=== PATIENT | male | born 1940 | race Caucasian/White ===

== ENCOUNTER 2016-08-07 13:57 | Inpatient (IN) | payer MEDICARE ==
[2016-08-07] VITALS (24 sets, daily range): BP systolic 132–224; BP diastolic 65–95; PULSE 34–80; RESP 16–21; TEMP 97.8; O2SAT 94–100
[~2016-08-07] VITALS: Ht 177.8 cm; Wt 96.5 kg
[~2016-08-07 13:57] MED LIST: AMLO5TAB22 PO; ASPI81TA11 PO; LISI-360 PO; NEBI5 PO; OMEP20TA39 PO; ROPI.5 PO; SYNT137T PO; ZOCO40TA PO
[2016-08-07 14:15] LABS: BASOPHIL # 0.1 TH/MM3 (0-0.2); BASOPHIL % 0.7 % (0.0-2.0); EOSINOPHIL # 0.2 TH/MM3 (0-0.4); EOSINOPHIL % 3.2 % (0.0-4.0); HEMATOCRIT 45.5 % (39.0-51.0); HEMO FLAGS DIFF FINAL; LYMPH % 21.3 % (9.0-44.0); LYMPHOCYTE # 1.6 TH/MM3 (1.0-4.8); MEAN CELL VOLUME 96.2 FL (80.0-100.0); MEAN CORPUSCULAR HEMOGLOBIN 32.2 PG (27.0-34.0); MEAN CORPUSCULAR HGB CONC 33.4 % (32.0-36.0); MONO % 7.6 % (0.0-8.0); NEUT % 67.2 % (16.0-70.0); PLATELET COUNT 214 TH/MM3 (150-450); RED BLOOD COUNT 4.73 MIL/MM3 (4.50-5.90); RED CELL DISTRIBUTION WIDTH 12.8 % (11.6-17.2); WHITE BLOOD COUNT 7.5 TH/MM3 (4.0-11.0)
[2016-08-07] MEDS ORDERED: NITROGLYCERIN-DEXTROSE INJ 250 ML IV ONE (14:15)
[2016-08-07] MEDS ORDERED: SODIUM CHLORIDE 0.9% FLUSH 10 ML FLUSH IV FLUSH PRN ×2 (14:15→16:00)
--- NOTE | 2016-08-07 14:18 | PD ---
HPI Chief Complaint: Chest Pain Time Seen by Provider: 14:02 Travel History International Travel<30 days: No Contact w/Intl Traveler<30days: No Traveled to known affect area: No History of Present Illness HPI This is a 75-year-old male who presents to the emergency department with onset of epigastric discomfort that started this morning, gradual in onset. Currently he reports severity is never had pain like this before. It radiates to the back between his shoulder blades. He denies any vomiting, fevers or chills. He denies any shortness of breath. He went to an urgent care prior to arrival here who recommended he come to an emergency department. He says he has stomach problems and he sees a financial planning consultant and takes Zantac. He also has a stent but says he's never had a heart attack. PFSH Past Medical History Hx Anticoagulant Therapy: Yes (BABY ASA DAILY) Cardiac Catheterization: Yes Cardiovascular Problems: Yes (STENT, HTN, CHOL, BRADYCARDIA) Coronary Artery Disease: Yes GERD: Yes Hiatal Hernia: Yes Hypertension: Yes Neurologic: Yes (RESTLESS LEG SYNDROME) Thyroid Disease: Yes Past Surgical History Coronary Stent: Yes Social History Alcohol Use: Yes (DAILY) Tobacco Use: Yes (CIGAR DAILY) Substance Use: No Allergies-Medications (Allergen,Severity, Reaction): Coded Allergies: No Known Allergies (Unverified , 08/07/16) Reported Meds & Prescriptions Reported Meds & Active Scripts Active Reported Aspir-81 (Aspirin) 81 Mg Tabdr Melatonin 5 Mg Tab 5 Mg PO HS Lisinopril 10 Mg Tab 10 Mg PO DAILY Lisinopril 5 Mg Tab 5 Mg PO DAILY Simvastatin 10 Mg Tab 10 Mg PO DAILY Ropinirole 1 Mg Tab 1 Mg PO HS Carvedilol 3.125 Mg Tab 3.125 Mg PO BID Magox 400 (Magnesium Oxide) 400 Mg Tablet Amlodipine (Amlodipine Besylate) 5 Mg Tab 5 Mg PO DAILY Synthroid (Levothyroxine Sodium) 150 Mcg Tab 150 Mcg PO DAILY Review of Systems Except as stated in HPI: all other systems reviewed are Neg Physical Exam Narrative GENERAL: Uncomfortable appearing, pale SKIN: Focused skin assessment warm and dry. HEAD: Atraumatic. Normocephalic. EYES: Pupils equal and round. No injection or drainage. ENT: Moist mucous membranes NECK: Trachea midline. CARDIOVASCULAR: Bradycardic. No murmur appreciated. RESPIRATORY: Clear to auscultation. Breath sounds equal bilaterally. GASTROINTESTINAL: Abdomen soft, non-tender, nondistended. No pulsatile mass. MUSCULOSKELETAL: No obvious deformities. NEUROLOGICAL: Awake and alert. No obvious cranial nerve deficits. Moving all extremities. PSYCHIATRIC: Appropriate mood and affect; insight and judgment normal. Data Data Last Documented VS Vital Signs Date Time Temp Pulse Resp B/P Pulse Ox O2 Delivery O2 Flow Rate FiO2 08/07/16 15:48 44 16 144/71 98 Nasal Cannula 2 08/07/16 14:14 97.8 Orders Complete Blood Count With Diff (08/07/16 14:02) Comprehensive Metabolic Panel (08/07/16 14:02) Lipase (08/07/16 14:02) Lactic Acid (08/07/16 14:02) Prothrombin Time / Inr (Pt) (08/07/16 14:02) Act Partial Throm Time (Ptt) (08/07/16 14:02) Iv Access Insert/Monitor (08/07/16 14:02) Ecg Monitoring (08/07/16 14:02) Oximetry (08/07/16 14:02) Sodium Chloride 0.9% Flush (Ns Flush) (08/07/16 14:15) Electrocardiogram (08/07/16 14:02) Ed Poc Ultrasound (08/07/16 ) Troponin I (08/07/16 14:02) Cta Thor Abd Aorta W Iv C W3d (08/07/16 ) Nitroglycerin-Dextrose Inj (Nitroglyceri (08/07/16 14:15) Morphine Inj (Morphine Inj) (08/07/16 14:30) Morphine Inj (Morphine Inj) (08/07/16 14:30) Iohexol 350 Inj (Omnipaque 350 Inj) (08/07/16 14:44) Morphine Inj (Morphine Inj) (08/07/16 15:15) Aspirin Chew (Aspirin Chew) (08/07/16 15:45) Admit Order (Ed Use Only) (08/07/16 15:52) Enoxaparin Inj (Lovenox Inj) (08/07/16 16:00) Labs Laboratory Tests Test 08/07/16 14:07 White Blood Count 7.5 TH/MM3 Red Blood Count 4.73 MIL/MM3 Hemoglobin 15.2 GM/DL Hematocrit 45.5 % Mean Corpuscular Volume 96.2 FL Mean Corpuscular Hemoglobin 32.2 PG Mean Corpuscular Hemoglobin 33.4 % Concent Red Cell Distribution Width 12.8 % Platelet Count 214 TH/MM3 Mean Platelet Volume 7.1 FL Neutrophils (%) (Auto) 67.2 % Lymphocytes (%) (Auto) 21.3 % Monocytes (%) (Auto) 7.6 % Eosinophils (%) (Auto) 3.2 % Basophils (%) (Auto) 0.7 % Neutrophils # (Auto) 5.0 TH/MM3 Lymphocytes # (Auto) 1.6 TH/MM3 Monocytes # (Auto) 0.6 TH/MM3 Eosinophils # (Auto) 0.2 TH/MM3 Basophils # (Auto) 0.1 TH/MM3 CBC Comment DIFF FINAL Differential Comment Prothrombin Time 10.7 SEC Prothromb Time International 1.0 RATIO Ratio Activated Partial 28.5 SEC Thromboplast Time Sodium Level 142 MEQ/L Potassium Level 3.6 MEQ/L Chloride Level 106 MEQ/L Carbon Dioxide Level 27.2 MEQ/L Anion Gap 9 MEQ/L Blood Urea Nitrogen 15 MG/DL Creatinine 1.00 MG/DL Estimat Glomerular Filtration 72 ML/MIN Rate Random Glucose 152 MG/DL Lactic Acid Level 1.6 mmol/L Calcium Level 9.5 MG/DL Total Bilirubin 0.7 MG/DL Aspartate Amino Transf 26 U/L (AST/SGOT) Alanine Aminotransferase 27 U/L (ALT/SGPT) Alkaline Phosphatase 66 U/L Troponin I LESS THAN 0.02 NG/ML Total Protein 7.0 GM/DL Albumin 3.7 GM/DL Lipase 173 U/L [facility] Medical Decision Making Medical Screen Exam Complete: Yes Emergency Medical Condition: Yes Interpretation(s) ekg: sinus bradycardia, T-wave inversions and 3 and aVF which are deeper and more pronounced than December 2014 No leukocytosis Electrolytes are reassuring Troponin is normal Lactic acid is 1.6 Coags are normal Last 24 hours Impressions Aorta CTA 08/07/16 0000 Signed Impressions: Service Date/Time: Friday, August 07, 2016 14:41 - CONCLUSION: There is no dissection. Marked artery calcifi is noted especially LAD. Mild cardiomegaly. There is no pericardial effusion. Emiliano Arndt MD FACR Differential Diagnosis Acute coronary syndrome, hypertensive urgency, hypertensive emergency, aortic dissection, gastritis, GERD Narrative Course This is a 75-year-old male who presents to the emergency department with substernal chest discomfort that radiates to the back. He was markedly hypertensive and bradycardic when he arrived. He was placed on a nitroglycerin infusion and given morphine. He appeared uncomfortable so a CTA was obtained to rule out aortic dissection which was negative. His EKG demonstrates ischemic -appearing T-wave inversions in 3 and aVF which are more pronounced than his prior EKG. Labs were obtained which were all reassuring. His CTA did demonstrate coronary artery calcification particularly in the LAD. I discussed the patient with Dr. Taveras who is on-call for Dr. Eli. He agreed the patient should be admitted and transferred to the main hospital as he will likely require cardiac catheterization. Patient was started on Lovenox and he received heparin in the emergency room. Critical Care Narrative Aggregate critical care time was 40 minutes. Time to perform other separately billable procedures was not included in the critical care time. My time did not include minutes spent treating any other patients simultaneously or on activities that did not directly contribute to the patient's treatment. The services I provided to this patient were to treat and/or prevent clinically significant deterioration that could result in: disability, I provided critical care services requiring my management, as noted below: Chart data review, documentation time, medication orders and management, vital sign assessments/reviewing monitor data, ordering and reviewing lab tests, ordering and interpreting/reviewing x-rays and diagnostic studies, care of the patient and discussion of the patient with the admitting physicians. Physician Communication Physician Communication Discussed with Dr. Taveras and Dr. Harper Diagnosis Primary Impression: Hypertensive urgency Admitting Information Admitting Physician Requests: Admit Catrachita Spangler MD Aug 07, 2016 14:18
[2016-08-07 14:22] LABS: CHLORIDE 106 MEQ/L (98-107); POTASSIUM 3.6 MEQ/L (3.5-5.1); SODIUM (NA) 142 MEQ/L (136-145)
[2016-08-07 14:26] LABS: ANION GAP 9 MEQ/L (5-15); BICARBONATE 27.2 MEQ/L (21.0-32.0); BLOOD UREA NITROGEN 15 MG/DL (7-18)
[2016-08-07] MEDS ORDERED: AMLO5TAB2 PO (14:26)
[2016-08-07] MEDS ORDERED: MELA5TAB15 PO (14:26)
[2016-08-07] MEDS ORDERED: ASPI81TA81 (14:26)
[2016-08-07] MEDS ORDERED: LEVO.15 PO (14:26)
[2016-08-07] MEDS ORDERED: MAGO400T2 (14:26)
[2016-08-07] MEDS ORDERED: ROPI1TAB PO (14:26)
[2016-08-07] MEDS ORDERED: LISI10TA3 PO (14:26)
[2016-08-07] MEDS ORDERED: CARV3.12 PO (14:26)
[2016-08-07] MEDS ORDERED: LISI-519 PO (14:26)
[2016-08-07] MEDS ORDERED: SIMV10TA PO (14:26)
[2016-08-07 14:27] LABS: APTT (PATIENT) 28.5 SEC (24.3-30.1); PROTHROMBIN TIME - PATIENT 10.7 SEC (9.8-11.6)
[2016-08-07 14:29] LABS: ALT (GPT) 27 U/L (12-78); AST (GOT) 26 U/L (15-37); GLOMERULAR FILTRATION RATE 72 ML/MIN (>89)
[2016-08-07 14:30] LABS: TOTAL BILIRUBIN ADULT 0.7 MG/DL (0.2-1.0)
[2016-08-07] MEDS ORDERED: MORPHINE SULFATE 8 MG/ML INJ IV PUSH ONE ×3 (14:30→19:45)
[2016-08-07] MEDS ORDERED: MORPHINE SULFATE 4 MG/ML INJ IV PUSH ONE (14:30)
[2016-08-07 14:32] LABS: ALKALINE PHOSPHATASE 66 U/L (45-117)
[2016-08-07] MEDS ORDERED: IOHEXOL 350 MG/ML 10 ML VIAL (for RAD DIAG) IV ONE (14:44)
--- NOTE | 2016-08-07 15:37 | RADRPT ---
EXAM DATE/TIME: 08/07/2016 14:41 [facility] COMPARISON: No previous studies available for comparison. INDICATIONS : Chest pain . Rule out aortic disection. IV CONTRAST: 98 cc Omnipaque 350 (iohexol) IV RADIATION DOSE: 21.60 CTDIvol (mGy) MEDICAL HISTORY : Hernia, hiatal. Gastroesophageal reflux disease. Cardiovascular disease SURGICAL HISTORY : Coronary artery stent. ENCOUNTER: Initial ACUITY: 1 day PAIN SCALE: 10/10 LOCATION: Bilateral middle chest TECHNIQUE: Volumetric scanning was performed using a multi-row detector CT scanner. The data was post processed with a variety of visualization algorithms including full volume maximum intensity pr ojection, multi-planar sliding thin slab reformation, curved planar reformation, and surface renderin g techniques. Using automated exposure control and adjustment of the mA and/or kV according to patie nt size, radiation dose was kept as low as reasonably achievable to obtain optimal diagnostic quality images. DICOM format image data is available electronically for review and comparison. FINDINGS: There is mild dilatation of the ascending aorta without evidence for aortic dissection. Minimal hard and soft plaque is seen in the descending aorta without aneurysmal dilatation. The celiac, superior mesenteric artery, renal area and iliac arteries are patent. There is no pericardial effusion. There is marked LAD calcification. The right coronary contains scattered calcifications as well. The lungs show mild interstitial changes with minimal cardiomegaly. There is scattered low-density l esions in the liver probably cysts. Spleen pancreas, adrenals and kidneys are unremarkable. Pelvic contents show scattered diverticuli. CONCLUSION: There is no dissection. Marked artery calcifi is noted especially LAD. Mild cardiom egaly. There is no pericardial effusion. Emiliano Arndt MD FACR on August 07, 2016 at 15:30 Board Certified Radiologist. This report was verified electronically.
[2016-08-07] MEDS ORDERED: ASPIRIN 81 MG CHEW TAB CHEW ONE (15:45)
[2016-08-07] MEDS ORDERED: BISACODYL 10 MG SUPP RECTAL PRN (16:00)
[2016-08-07] MEDS ORDERED: ONDANSETRON HCL 4 MG/2 ML VIAL IVP PRN (16:00)
[2016-08-07] MEDS ORDERED: LACTULOSE SYRUP 20 GM/30 ML CUP PO PRN (16:00)
[2016-08-07] MEDS ORDERED: ACETAMINOPHEN 325 MG TAB PO PRN (16:00)
[2016-08-07] MEDS ORDERED: ENOXAPARIN SODIUM 100 MG/ML SYRINGE SQ ONE (16:00)
[2016-08-07] MEDS ORDERED: NALOXONE HCL 0.4 MG/ML AMP IV PRN (16:00)
--- NOTE | 2016-08-07 18:08 | HHI.HP ---
HPI Service [facility] Primary Care Physician Mitchel Osborne MD Admission Diagnosis hypertensive urgency Diagnoses: Chief Complaint: Chest pain, dizziness. Travel History International Travel<30 Days: No Contact w/Intl Traveler <30 Da: No Traveled to Known Affected Are: No History of Present Illness Mr. San is a pleasant 75-year-old male with a history of hypertension, CAD status post stent placement in 2003 who presents to the emergency department with epigastric discomfort that started this morning after he walked 1 and half mile. For the last 2-3 days, patient has been experiencing some epigastric discomfort. However this morning around 6 AM after he walked his usual 1.5 miles, he started having constant epigastric chest discomfort radiating to the back between the shoulder blades. He reports more than usual sweating with this episode as well. He also reports some dizziness during exertion. He denies any radiation of this chest discomfort to neck, jaw, shoulder or arms. No nausea vomiting. No shortness of breath, cough or fever or chills. Patient denies any changes in bowel or bladder habits. On arrival blood pressure 224/95, heart rate 37, respirations 16, temperature 97.8, pulse ox 100% on 2 L. No leukocytosis. Troponin 0.02. Lipase 173. EKG showed bradycardia (HR 35) and T wave inversions in Lead II, V3. Aorta CTA was performed due to suspicion over aortic dissection. Aorta CTA shows no dissection but shows markedly artery calcifi noted especially LAD. Patient's foreign broadcast specialist is Dr. Eli whose partner Dr. Taveras was contacted by ED provider. Dr. Taveras recommended anticoagulation and transferring patient to the main hospital for possible cardiac catheterization. Review of Systems Except as stated in HPI: all other systems reviewed are Neg Past Family Social History Past Medical History Hypertension, CAD, hyperlipidemia, hypothyroidism, GERD. Past Surgical History Cardiac stent placement in 2003 Reported Medications Aspir-81 (Aspirin) 81 Mg Tabdr Melatonin 5 Mg Tab 5 Mg PO HS Lisinopril 10 Mg Tab 10 Mg PO DAILY Lisinopril 5 Mg Tab 5 Mg PO DAILY Simvastatin 10 Mg Tab 10 Mg PO DAILY Ropinirole 1 Mg Tab 1 Mg PO HS Carvedilol 3.125 Mg Tab 3.125 Mg PO BID Magox 400 (Magnesium Oxide) 400 Mg Tablet Amlodipine (Amlodipine Besylate) 5 Mg Tab 5 Mg PO DAILY Synthroid (Levothyroxine Sodium) 150 Mcg Tab 150 Mcg PO DAILY Allergies: Coded Allergies: No Known Allergies (Unverified , 08/07/16) Family History Father from heart attack at age 58. Mother from liver cancer at age 78. Social History Patient smokes cigar once in a while. Drinks 2-3 alcoholic drinks per day. Physical Exam Vital Signs Vital Signs Date Time Temp Pulse Resp B/P Pulse Ox O2 Delivery O2 Flow Rate FiO2 08/07/16 17:17 44 16 144/70 97 Nasal Cannula 2 08/07/16 17:07 38 16 149/65 98 Nasal Cannula 2 08/07/16 16:39 38 16 163/70 98 Nasal Cannula 2 08/07/16 16:21 37 16 175/76 98 Nasal Cannula 2 08/07/16 16:08 37 16 166/66 99 Nasal Cannula 2 08/07/16 15:48 44 16 144/71 98 Nasal Cannula 2 08/07/16 15:32 39 16 160/70 97 Nasal Cannula 2 08/07/16 15:18 43 16 154/66 97 Nasal Cannula 2 08/07/16 15:00 36 16 187/81 99 Nasal Cannula 2 08/07/16 14:38 36 16 157/66 97 Nasal Cannula 2 08/07/16 14:36 34 16 140/69 97 Nasal Cannula 2 08/07/16 14:31 37 16 151/70 99 Nasal Cannula 2 08/07/16 14:25 37 16 154/76 97 Nasal Cannula 2 08/07/16 14:24 35 16 208/86 97 Nasal Cannula 2 08/07/16 14:21 16 98 Nasal Cannula 2 08/07/16 14:18 16 100 2 08/07/16 14:14 97.8 37 16 224/95 100 Physical Exam GENERAL: This is a well-nourished, well-developed patient, in no apparent distress. SKIN: No rashes, ecchymoses or lesions. Warm and dry. HEAD: Atraumatic. Normocephalic. No temporal or scalp tenderness. EYES: Pupils equal round and reactive. No injection or drainage. ENT: Nose without bleeding, purulent drainage or septal hematoma. Airway patent. NECK: Trachea midline. No lymphadenopathy. Supple, nontender, no meningeal signs. CARDIOVASCULAR: Regular rhythm, bradycardic without murmurs, gallops, or rubs. No JVD. RESPIRATORY: Clear to auscultation. Breath sounds equal bilaterally. No wheezes , rales, or rhonchi. GASTROINTESTINAL: Abdomen soft, non-tender, nondistended. No guarding. MUSCULOSKELETAL: Extremities without clubbing, cyanosis, or edema. NEUROLOGICAL: Awake and alert. Cranial nerves II through XII intact. No focal neurological deficits. Normal speech. Laboratory Laboratory Tests Test 08/07/16 14:07 White Blood Count 7.5 Red Blood Count 4.73 Hemoglobin 15.2 Hematocrit 45.5 Mean Corpuscular Volume 96.2 Mean Corpuscular Hemoglobin 32.2 Mean Corpuscular Hemoglobin 33.4 Concent Red Cell Distribution Width 12.8 Platelet Count 214 Mean Platelet Volume 7.1 Neutrophils (%) (Auto) 67.2 Lymphocytes (%) (Auto) 21.3 Monocytes (%) (Auto) 7.6 Eosinophils (%) (Auto) 3.2 Basophils (%) (Auto) 0.7 Neutrophils # (Auto) 5.0 Lymphocytes # (Auto) 1.6 Monocytes # (Auto) 0.6 Eosinophils # (Auto) 0.2 Basophils # (Auto) 0.1 CBC Comment DIFF FINAL Differential Comment Prothrombin Time 10.7 Prothromb Time International 1.0 Ratio Activated Partial 28.5 Thromboplast Time Sodium Level 142 Potassium Level 3.6 Chloride Level 106 Carbon Dioxide Level 27.2 Anion Gap 9 Blood Urea Nitrogen 15 Creatinine 1.00 Estimat Glomerular Filtration 72 Rate Random Glucose 152 Lactic Acid Level 1.6 Calcium Level 9.5 Total Bilirubin 0.7 Aspartate Amino Transf 26 (AST/SGOT) Alanine Aminotransferase 27 (ALT/SGPT) Alkaline Phosphatase 66 Troponin I LESS THAN 0.02 Total Protein 7.0 Albumin 3.7 Lipase 173 Result Diagram: 08/07/16 1407 08/07/16 1407 Imaging Last Impressions Aorta CTA 08/07/16 0000 Signed Impressions: Service Date/Time: Sunday, August 07, 2016 14:41 - CONCLUSION: There is no dissection. Marked artery calcifi is noted especially LAD. Mild cardiomegaly. There is no pericardial effusion. Emiliano Arndt MD FACR Assessment and Plan Problem List: (1) Hypertensive urgency ICD Code: I16.0 Status: Acute (2) Chest pain ICD Code: R07.9 Status: Acute (3) Symptomatic bradycardia ICD Code: R00.1 Status: Acute (4) GERD (gastroesophageal reflux disease) ICD Code: K21.9 Status: Acute (5) Hypertension ICD Code: I10 Status: Acute (6) Hypothyroidism ICD Code: E03.9 Status: Acute (7) CAD (coronary artery disease) ICD Code: I25.10 Status: Acute Assessment and Plan Mr. San is a pleasant 75-year-old male with a history of hypertension, CAD, GERD who presents to the emergency department due to severe epigastric pain radiating to his back that started after he walked 1.5 miles in the morning around 6 AM. His pain subsided after he came to the emergency department where he was found to have blood pressure 224/95. - Hypertensive urgency - Patient was started on nitroglycerine drip in the ED. Currently, BP is in the 140s range systolic. - Wean off nitro drip. - Continue Amlodipine 5mg Qday and Lisinopril 10mg Qday. - Continue Carvedilol with holding parameters. - Coronary artery disease - Acute chest pain - Patient has a cardiac stent [place] [address] Eli. - Received Aspirin 162mg. - Received Morphine which improved his epigastric chest discomfort. - EKG, CXR reviewed by me. EKG shows bradycardia with T wave inversions in lead 3 and V3. - Continue Lovenox 90mg BID. - Cardiology consulted. - Symptomatic bradycardia - Possibly due to beta windy. - Patient gets dizzy occasionally. His heart rate was found to be in the 30s. - Hyperlipidemia - D/C Pravastatin and start Lipitor 40mg QHS. - GERD - Patient's epigastric chest discomfort could be due to GERD. - We will start him on Protonix 40mg BID - If Cardiac cath is negative for any acute findings, consider outpatient EGD. - Hypothyroidism - Continue Levothyroxine 150 mcg Qday. Full code. Lovenox. Physician Certification 2 Midnight Certification Type: Admission for Inpatient Services Order for Inpatient Services The services are ordered in accordance with Medicare regulations or non- Medicare payer requirements, as applicable. In the case of services not specified as inpatient-only, they are appropriately provided as inpatient services in accordance with the 2-midnight benchmark. Estimated LOS (days): 2 days is the estimated time the patient will need to remain in the hospital, assuming treatment plan goals are met and no additional complications. Post-Hospital Plan: Home Carlos Harper DO Aug 07, 2016 18:08
[2016-08-07] MEDS: CARVEDILOL 3.125 MG TAB PO SCH (21:25)
[2016-08-07] MEDS: PANTOPRAZOLE SOD 40 MG DELAYED RELEASE TAB PO SCH (21:25)
[2016-08-07] MEDS: MELATONIN 5 MG TAB PO SCH (21:25)
[2016-08-07] MEDS: DOCUSATE SODIUM 50 MG/SENNA 8.6 MG TAB PO SCH (21:26)
[2016-08-07] MEDS: ATORVASTATIN 40 MG TAB PO SCH (21:26)
[2016-08-07] MEDS: SODIUM CHLORIDE 0.9% FLUSH 10 ML FLUSH IV FLUSH SCH (21:27)
[2016-08-08] VITALS (10 sets, daily range): BP systolic 140–179; BP diastolic 77–97; PULSE 60–81; RESP 8–34; TEMP 97.9–98.8; O2SAT 94–96
[2016-08-08 05:03] LABS: AUTOMATED NEUTROPHIL # 11.6 TH/MM3 (1.8-7.7); BASOPHIL % 0.2 % (0.0-2.0); EOSINOPHIL # 0.1 TH/MM3 (0-0.4); EOSINOPHIL % 0.7 % (0.0-4.0); HEMATOCRIT 41.9 % (39.0-51.0); HEMO FLAGS DIFF FINAL; LYMPHOCYTE # 1.3 TH/MM3 (1.0-4.8); MEAN CELL VOLUME 93.5 FL (80.0-100.0); MEAN CORPUSCULAR HEMOGLOBIN 32.1 PG (27.0-34.0); MEAN CORPUSCULAR HGB CONC 34.4 % (32.0-36.0); MONO % 8.9 % (0.0-8.0); NEUT % 81.2 % (16.0-70.0); PLATELET COUNT 159 TH/MM3 (150-450); RED BLOOD COUNT 4.48 MIL/MM3 (4.50-5.90); WHITE BLOOD COUNT 14.3 TH/MM3 (4.0-11.0)
[2016-08-08 05:30] LABS: BICARBONATE 27.1 MEQ/L (21.0-32.0); POTASSIUM 3.2 MEQ/L (3.5-5.1)
[2016-08-08] MEDS ORDERED: ENOXAPARIN SODIUM 100 MG/ML SYRINGE SQ SCH (07:00)
[2016-08-08] MEDS: LEVOTHYROXINE SODIUM 150 MCG TAB PO SCH (07:28)
--- NOTE | 2016-08-08 08:07 | EKG ---
Date Performed: 08/07/2016 Time Performed: 14:03:06 PTAGE: 75 years EKG: SINUS BRADYCARDIA POSSIBLE LEFT VENTRICULAR HYPERTROPHY POSSIBLE ANTERIOR MYOCARDIAL INFARC TION ABNORMAL ECG NO PREVIOUS TRACING DOCTOR: Bradley Pedersen Interpretating Date/Time 08/08/2016 08:00:37
[2016-08-08] MEDS: ASPIRIN EC 81 MG TABEC PO SCH (08:58)
[2016-08-08] MEDS: amLODIPine BESYLATE 5 MG TAB PO SCH (08:58)
[2016-08-08] MEDS: SODIUM CHLORIDE 0.9% FLUSH 10 ML FLUSH IV FLUSH SCH ×2 (08:58→21:37)
[2016-08-08] MEDS: DOCUSATE SODIUM 50 MG/SENNA 8.6 MG TAB PO SCH ×2 (08:59→21:37)
[2016-08-08] MEDS: PANTOPRAZOLE SOD 40 MG DELAYED RELEASE TAB PO SCH ×2 (08:59→21:37)
[2016-08-08] MEDS: LISINOPRIL 10 MG TAB PO SCH (08:59)
[2016-08-08] MEDS ORDERED: PRAVASTATIN SOD 20 MG TAB PO SCH (09:00)
[2016-08-08] MEDS: CARVEDILOL 3.125 MG TAB PO SCH ×2 (09:02→21:37)
[2016-08-08] MEDS ORDERED: SODIUM PHOSPHATE INJ 30 MMOL in SODIUM CHLOR 0.9% 250 ML INJ 240 ML IV PRN (12:15)
[2016-08-08] MEDS ORDERED: POTASSIUM CHLORIDE 25 MEQ EFFERVESCENT TAB PO PRN (12:15)
[2016-08-08] MEDS ORDERED: POTASSIUM PHOSPHATE MONOBASIC 500 MG TAB PO/TUBE PRN (12:15)
[2016-08-08] MEDS ORDERED: POTASSIUM CHLOR 40 MEQ PREMIX 100 ML IV PRN ×2 (12:15)
[2016-08-08] MEDS ORDERED: POTASSIUM PHOSPHATE INJ 30 MMOL in SODIUM CHLOR 0.9% 250 ML INJ 250 ML IV PRN (12:15)
[2016-08-08] MEDS ORDERED: MAGNESIUM OXIDE 400 MG TAB PO PRN (12:15)
[2016-08-08] MEDS ORDERED: POTASSIUM CHLOR 20 MEQ PREMIX 100 ML IV PRN ×2 (12:15)
[2016-08-08] MEDS ORDERED: MAGNESIUM SULFATE INJ 4 GM in SODIUM CHLORIDE 0.9% INJ 92 ML IV PRN (12:15)
[2016-08-08] MEDS ORDERED: MAGNESIUM SULFATE INJ 2 GM in SODIUM CHLORIDE 0.9% INJ 96 ML IV PRN (12:15)
[2016-08-08] MEDS ORDERED: POTASSIUM CHLORIDE 20 MEQ CONTROLLED RELEASE TAB PO ONE (12:15)
[2016-08-08] MEDS ORDERED: POTASSIUM PHOSPHATE MONOBASIC 500 MG TAB PO PRN (12:15)
--- NOTE | 2016-08-08 12:29 | HHI.PR ---
Subjective Remarks Follow-up coronary artery disease with chest pain and hypertension. States he is feeling better not having the kind of chest pain he had yesterday. Complains of intermittent sharp lower lateral chest wall pains lasting for a few seconds when he moves. Denies shortness of breath, palpitations, nausea, dizziness and diaphoresis. States he had negative stress test 6 months ago. He exercises walks 1.5 miles per day in 22 minutes without symptoms. Discussed with RN to wean and discontinue nitro drip Objective Vitals Vital Signs Date Time Temp Pulse Resp B/P Pulse Ox O2 Delivery O2 Flow Rate FiO2 08/08/16 04:02 97.9 77 8 140/85 95 08/08/16 04:00 97.9 77 8 140/85 95 08/08/16 03:00 97.9 77 8 140/85 95 08/08/16 00:02 98.6 81 22 146/82 96 08/07/16 23:00 97.8 72 21 148/87 94 08/07/16 22:00 97.8 80 21 148/79 94 08/07/16 19:59 69 18 132/87 97 2 08/07/16 19:30 56 20 157/81 97 Nasal Cannula 08/07/16 19:05 Nasal Cannula 2 08/07/16 19:05 55 18 136/73 96 Nasal Cannula 08/07/16 18:51 45 154/72 99 08/07/16 18:13 40 158/75 99 08/07/16 17:37 47 148/73 99 08/07/16 17:17 44 16 144/70 97 Nasal Cannula 2 08/07/16 17:07 38 16 149/65 98 Nasal Cannula 2 08/07/16 16:39 38 16 163/70 98 Nasal Cannula 2 08/07/16 16:21 37 16 175/76 98 Nasal Cannula 2 08/07/16 16:08 37 16 166/66 99 Nasal Cannula 2 08/07/16 15:48 44 16 144/71 98 Nasal Cannula 2 08/07/16 15:32 39 16 160/70 97 Nasal Cannula 2 08/07/16 15:18 43 16 154/66 97 Nasal Cannula 2 08/07/16 15:00 36 16 187/81 99 Nasal Cannula 2 08/07/16 14:38 36 16 157/66 97 Nasal Cannula 2 08/07/16 14:36 34 16 140/69 97 Nasal Cannula 2 08/07/16 14:31 37 16 151/70 99 Nasal Cannula 2 08/07/16 14:25 37 16 154/76 97 Nasal Cannula 2 08/07/16 14:24 35 16 208/86 97 Nasal Cannula 2 08/07/16 14:21 16 98 Nasal Cannula 2 08/07/16 14:18 16 100 2 08/07/16 14:14 97.8 37 16 224/95 100 I/O 08/07/16 08/07/16 08/07/16 08/08/16 08/08/16 08/08/16 07:00 15:00 23:00 07:00 15:00 23:00 Intake Total 317 ml Output Total 900 ml 350 ml Balance -900 ml -33 ml Intake Oral 240 ml IV Total 77 ml Output Urine Total 900 ml 350 ml Result Diagram: 08/08/16 0357 08/08/16 0357 Imaging Last Impressions Aorta CTA 08/07/16 0000 Signed Impressions: Service Date/Time: Sunday, August 07, 2016 14:41 - CONCLUSION: There is no dissection. Marked artery calcifi is noted especially LAD. Mild cardiomegaly. There is no pericardial effusion. Emiliano Arndt MD FACR Objective Remarks GENERAL: This is a well-nourished, well-developed patient, in no apparent distress. SKIN: No rashes, ecchymoses or lesions. Warm and dry. HEAD: Atraumatic. Normocephalic. No temporal or scalp tenderness. EYES: Pupils equal round and reactive. No injection or drainage. ENT: Nose without bleeding, purulent drainage or septal hematoma. Airway patent. NECK: Trachea midline. No lymphadenopathy. Supple, nontender, no meningeal signs. CARDIOVASCULAR: Regular rhythm, bradycardic without murmurs, gallops, or rubs. No JVD. Telemetry showing heart rate in the high 50s RESPIRATORY: Clear to auscultation. Breath sounds equal bilaterally. No wheezes , rales, or rhonchi. GASTROINTESTINAL: Abdomen soft, non-tender, nondistended. No guarding. MUSCULOSKELETAL: Extremities without clubbing, cyanosis, or edema. NEUROLOGICAL: Awake and alert. Cranial nerves II through XII intact. No focal neurological deficits. Normal speech. Procedures none A/P Problem List: (1) Hypertensive urgency ICD Code: I16.0 Status: Resolved (2) Chest pain ICD Code: R07.9 Status: Acute (3) Symptomatic bradycardia ICD Code: R00.1 Status: Resolved (4) GERD (gastroesophageal reflux disease) ICD Code: K21.9 Status: Chronic (5) Hypertension ICD Code: I10 Status: Chronic (6) Hypothyroidism ICD Code: E03.9 Status: Chronic (7) CAD (coronary artery disease) ICD Code: I25.10 Status: Chronic Assessment and Plan Mr. San is a pleasant 75-year-old male with a history of hypertension, CAD, GERD who presents to the emergency department due to severe epigastric pain radiating to his back that started after he walked 1.5 miles in the morning around 6 AM. His pain subsided after he came to the emergency department where he was found to have blood pressure 224/95. Hypertensive urgency - Patient was started on nitroglycerine drip in the ED. Currently, BP is in the 140s range systolic. - Wean off nitro drip. - Continue Amlodipine 5mg Qday and Lisinopril 10mg Qday. - Continue Carvedilol with holding parameters. Coronary artery disease Acute chest pain. Atypical chest pain. Ruled out for [place]. - Patient has a cardiac stent [place] in [address] Eli. - Received Aspirin 162mg. - Received Morphine which improved his epigastric chest discomfort. - EKG, CXR reviewed by me. EKG shows bradycardia with T wave inversions in lead 3 and V3 no significant change from previous. - Continue Lovenox will decrease to 40 mg daily - Cardiology consulted. Symptomatic bradycardia - Possibly due to beta windy. - Patient gets dizzy occasionally. His heart rate was found to be in the 30s. Now in the high 50s Hyperlipidemia - D/C Pravastatin and start Lipitor 40mg QHS. GERD - Patient's epigastric chest discomfort could be due to GERD. - We will continue him on Protonix 40mg BID - If Cardiac cath is negative for any acute findings, consider outpatient EGD. Hypothyroidism - Continue Levothyroxine 150 mcg Qday. Hypokalemia with replace with 40 mEq by mouth potassium. Check magnesium and replace accordingly. Repeat BMP and magnesium in the morning Leukocytosis likely reactive. Repeat CBC in the morning DVT prophylaxis with SCD and Lovenox. Discharge Planning Patient seen in ICU(CIC overflow) I spent 35 minutes [id number] with the patient or on the dunne discussing the patient's disposition, prognosis, and plan of care with patient's caregivers. Over half the time spent was devoted to counseling the patient regarding care with caregivers Jeanmarie Rich MD Aug 08, 2016 12:29
[2016-08-08] MEDS ORDERED: HALOPERIDOL LACTATE 5 MG/ML AMP IM PRN (12:30)
[2016-08-08] MEDS ORDERED: LORazepam 1 MG TAB PO PRN (12:30)
[2016-08-08] MEDS ORDERED: LORazepam 2 MG TAB PO PRN (12:30)
[2016-08-08] MEDS ORDERED: LORazepam 2 MG/ML VIAL IV PUSH PRN ×4 (12:30)
[2016-08-08] MEDS ORDERED: FLUMAZENIL 0.5 MG/5 ML VIAL IV PUSH PRN (12:30)
[2016-08-08] MEDS: ENOXAPARIN SODIUM 40 MG/0.4 ML SYRINGE SQ SCH (13:18)
[2016-08-08 14:00] LABS: MAGNESIUM 2.3 MG/DL (1.5-2.5)
--- NOTE | 2016-08-08 17:43 | MB ---
cc: CHAPARRITA TA MD DATE OF CONSULTATION 08/08/16 HISTORY OF PRESENT ILLNESS Mr. San is a 75-year-old white male patient of Dr. Eli with history of coronary stenting in 2003 and a negative nuclear myocardial perfusion study with Dr. Eli 6 months ago. He developed severe epigastric chest discomfort after he walked yesterday morning. It was radiating into the back. He was admitted to the hospital and was ruled out for myocardial infarction. His CT angiogram showed no evidence of aortic dissection. His pain is improved today but now he complains of lower mid abdomen and also bilateral midabdominal pain. He denies any shortness of breath. He has able to walk around the unit without any symptoms. PAST MEDICAL HISTORY Positive for coronary artery disease, coronary stenting in 2003, hypertension, dyslipidemia, hypothyroidism, gastroesophageal reflux disease. His doctor of radiology is Dr. Sousa. MEDICATIONS Include: 1. Synthroid. 2. Amlodipine. 3. Magnesium. 4. Carvedilol. 5. Ropinirol. 6. Simvastatin. 7. Lisinopril. 8. Melatonin. 9. Aspirin. ALLERGIES None. SOCIAL HISTORY The patient smokes cigars occasionally. He drinks two to three drinks a day. He is accompanied by his family. FAMILY HISTORY Positive for heart disease in his father. REVIEW OF SYSTEMS The review of systems is otherwise negative. PHYSICAL EXAMINATION VITAL SIGNS: Blood pressure 150/90, pulse 63 and regular. HEENT: Negative. 2+ carotid upstrokes. No bruits. LUNGS: Clear. HEART: Regular with no murmur, gallop. ABDOMEN: Soft. No bruits. EXTREMITIES: __ edema. 2+ distal pulses. NEUROLOGIC: Exam is grossly nonfocal. CARDIOLOGY STUDIES EKG was reviewed and showed sinus bradycardia, left ventriculography and delayed R-wave progression of pericardial leads. Telemetry now shows normal sinus rhythm. LABORATORY DATA Hemoglobin 14.4, potassium 3.2, creatinine 0.8. Troponin less than 0.02 x3. DIAGNOSIS 1. Atypical chest pain/epigastric pain. 2. Coronary artery disease. History of coronary stenting with negative nuclear marker perfusion study 6 months ago. 3. Hypertensive urgency. 4. Sinus bradycardia. 5. Dyslipidemia. 6. Gastroesophageal reflux disease. DISPOSITION Mr. San has been ruled for myocardial infarction by enzymes. His symptoms are atypical for coronary artery disease. He had a nuclear stress test [address] Eli which was reportedly unremarkable. I recommend to continue his current medical program. He has been constipated since Friday and this certainly can contribute to his cardiac symptoms. I recommend to proceed with GI evaluation. He can be discharged home from cardiac standpoint. He will be scheduled for follow up with Dr. Eli is his office as outpatient within 2 weeks. Chaparrita Ta MD OQ/EO /5:22 PM /5:31 PM
[2016-08-08] MEDS ORDERED: ROPI1TAB PO ×2 (18:35→18:37)
[2016-08-08] MEDS: SENNOSIDES 8.6 MG TAB PO PRN (19:27)
[2016-08-08] MEDS: MAGNESIUM HYDROXIDE SUSP 30 ML CUP PO PRN (19:27)
[2016-08-08] MEDS: ATORVASTATIN 40 MG TAB PO SCH (21:37)
[2016-08-08] MEDS: MELATONIN 5 MG TAB PO SCH (21:51)
[2016-08-09] VITALS (19 sets, daily range): BP systolic 132–149; BP diastolic 68–84; PULSE 56–76; RESP 16–20; TEMP 98.1–99.1; O2SAT 94–98
[2016-08-09] MEDS: LEVOTHYROXINE SODIUM 150 MCG TAB PO SCH (04:53)
[2016-08-09 06:16] LABS: AUTOMATED NEUTROPHIL # 11.8 TH/MM3 (1.8-7.7); BASOPHIL % 0.2 % (0.0-2.0); EOSINOPHIL # 0.1 TH/MM3 (0-0.4); EOSINOPHIL % 0.7 % (0.0-4.0); HEMATOCRIT 38.8 % (39.0-51.0); HEMO FLAGS DIFF FINAL; LYMPH % 8.3 % (9.0-44.0); LYMPHOCYTE # 1.2 TH/MM3 (1.0-4.8); MEAN CELL VOLUME 92.9 FL (80.0-100.0); MEAN CORPUSCULAR HEMOGLOBIN 33.2 PG (27.0-34.0); MEAN CORPUSCULAR HGB CONC 35.8 % (32.0-36.0); MONO % 9.9 % (0.0-8.0); NEUT % 80.9 % (16.0-70.0); PLATELET COUNT 143 TH/MM3 (150-450); RED BLOOD COUNT 4.17 MIL/MM3 (4.50-5.90); WHITE BLOOD COUNT 14.6 TH/MM3 (4.0-11.0)
[2016-08-09 06:42] LABS: BICARBONATE 25.8 MEQ/L (21.0-32.0); MAGNESIUM 2.3 MG/DL (1.5-2.5); POTASSIUM 3.6 MEQ/L (3.5-5.1)
[2016-08-09] MEDS ORDERED: PANT40TA3 PO (07:38)
[2016-08-09] MEDS ORDERED: SENN1TAB PO (07:38)
[2016-08-09] MEDS ORDERED: GNP100TA3 PO (07:38)
[2016-08-09] MEDS ORDERED: K-PHTAB PO (07:40)
--- NOTE | 2016-08-09 07:40 | HHI.DCPOC ---
Discharge Care Plan Diagnosis: (1) Hypertensive urgency (2) Chest pain Your Health Problems Are: Difficulty with ADL Exercise Tolerance Goals to Promote Your Health * To prevent worsening of your condition and complications * To maintain your health at the optimal level Directions to Meet Your Goals Take your medications as prescribed Follow your dietary instruction Follow activity as directed Keep your appointments as scheduled Take your immunizations and boosters as scheduled If your symptoms worsen call your PCP, if no PCP go to Urgent Care Center or Emergency Room Smoking is Dangerous to Your Health. Avoid second hand smoke Call the 24-hour hour crisis hotline for domestic abuse at Jeanmarie Rich MD Aug 09, 2016 07:40
[2016-08-09] MEDS: DOCUSATE SODIUM 50 MG/SENNA 8.6 MG TAB PO SCH ×2 (08:19→20:23)
[2016-08-09] MEDS: MAGNESIUM HYDROXIDE SUSP 30 ML CUP PO PRN (08:19)
[2016-08-09] MEDS: THIAMINE HCL 100 MG TAB PO SCH (08:20)
[2016-08-09] MEDS: MULTIVITAMINS/MINERALS THERAPEUTIC TAB PO SCH (08:20)
[2016-08-09] MEDS: amLODIPine BESYLATE 5 MG TAB PO SCH (08:20)
[2016-08-09] MEDS: LISINOPRIL 10 MG TAB PO SCH (08:20)
[2016-08-09] MEDS: PANTOPRAZOLE SOD 40 MG DELAYED RELEASE TAB PO SCH ×2 (08:20→20:24)
[2016-08-09] MEDS: SODIUM CHLORIDE 0.9% FLUSH 10 ML FLUSH IV FLUSH SCH ×2 (08:20→20:25)
[2016-08-09] MEDS: SENNOSIDES 8.6 MG TAB PO PRN (08:20)
[2016-08-09] MEDS: CARVEDILOL 3.125 MG TAB PO SCH ×2 (08:20→20:24)
[2016-08-09] MEDS: FOLIC ACID 1 MG TAB PO SCH (08:20)
[2016-08-09] MEDS: ASPIRIN EC 81 MG TABEC PO SCH (08:20)
[2016-08-09] MEDS: POTASSIUM PHOSPHATE MONOBASIC 500 MG TAB PO SCH ×2 (09:00→20:23)
[2016-08-09] MEDS ORDERED: POTASSIUM PHOSPHATE INJ 30 MMOL in SODIUM CHLOR 0.9% 250 ML INJ 250 ML IV ONE (09:00)
--- NOTE | 2016-08-09 09:07 | HHI.PR ---
Subjective Remarks Follow-up hypertension, hypophosphatemia and constipation. He is feeling better still having right flank pain especially on the right side. No bowel movement since Friday but passing gas no abdominal distention. No UTI symptoms. Discussed with cardiology who cleared patient for discharge Objective Vitals Vital Signs Date Time Temp Pulse Resp B/P Pulse Ox O2 Delivery O2 Flow Rate FiO2 08/09/16 07:16 56 08/09/16 04:52 99.1 59 18 133/68 95 08/09/16 00:00 98.8 64 20 146/84 94 08/08/16 21:40 152/83 08/08/16 21:00 97.9 73 18 162/88 94 08/08/16 20:00 60 08/08/16 20:00 97.9 60 24 158/77 95 08/08/16 16:00 98.4 73 34 174/84 95 08/08/16 12:00 98.8 63 33 179/91 96 I/O 08/08/16 08/08/16 08/08/16 08/09/16 08/09/16 08/09/16 07:00 15:00 23:00 07:00 15:00 23:00 Intake Total 317 ml 747 ml 240 ml 480 ml Output Total 350 ml Balance -33 ml 747 ml 240 ml 480 ml Intake Oral 240 ml 720 ml 240 ml 480 ml IV Total 77 ml 27 ml Output Urine Total 350 ml # Voids 3 # Bowel Movements 0 Result Diagram: 08/09/16 0540 08/09/16 0540 Imaging Last Impressions Aorta CTA 08/07/16 0000 Signed Impressions: Service Date/Time: Sunday, August 07, 2016 14:41 - CONCLUSION: There is no dissection. Marked artery calcifi is noted especially LAD. Mild cardiomegaly. There is no pericardial effusion. Emiliano Arndt MD FACR Objective Remarks GENERAL: This is a well-nourished, well-developed patient, in no apparent distress. SKIN: No rashes, ecchymoses or lesions. Warm and dry. HEAD: Atraumatic. Normocephalic. No temporal or scalp tenderness. EYES: Pupils equal round and reactive. No injection or drainage. ENT: Nose without bleeding, purulent drainage or septal hematoma. Airway patent. NECK: Trachea midline. No lymphadenopathy. Supple, nontender, no meningeal signs. CARDIOVASCULAR: Regular rhythm, bradycardic without murmurs, gallops, or rubs. No JVD. RESPIRATORY: Clear to auscultation. Breath sounds equal bilaterally. No wheezes , rales, or rhonchi. GASTROINTESTINAL: Abdomen soft, non-tender, nondistended. No guarding. MUSCULOSKELETAL: Extremities without clubbing, cyanosis, or edema. NEUROLOGICAL: Awake and alert. Cranial nerves II through XII intact. No focal neurological deficits. Normal speech. Procedures none A/P Problem List: (1) Hypertensive urgency ICD Code: I16.0 Status: Resolved (2) Chest pain ICD Code: R07.9 Status: Acute (3) Symptomatic bradycardia ICD Code: R00.1 Status: Resolved (4) GERD (gastroesophageal reflux disease) ICD Code: K21.9 Status: Chronic (5) Hypertension ICD Code: I10 Status: Chronic (6) Hypothyroidism ICD Code: E03.9 Status: Chronic (7) CAD (coronary artery disease) ICD Code: I25.10 Status: Chronic Assessment and Plan Mr. San is a pleasant 75-year-old male with a history of hypertension, CAD, GERD who presents to the emergency department due to severe epigastric pain radiating to his back that started after he walked 1.5 miles in the morning around 6 AM. His pain subsided after he came to the emergency department where he was found to have blood pressure 224/95. Hypertensive urgency. Improved - Patient was started on nitroglycerine drip in the ED. Currently, BP is in the 140s range systolic. - Weaned off nitro drip. - Continue Amlodipine 5mg Qday and Lisinopril 10mg Qday. - Continue Carvedilol with holding parameters. Coronary artery disease Acute chest pain. Atypical chest pain. Ruled out for [place]. Doubt PE no risk factors. Patient not hypoxic - Patient has a cardiac stent [place] in [address] Eli. - Received Aspirin 162mg. - Received Morphine which improved his epigastric chest discomfort. - EKG, CXR reviewed by me. EKG shows bradycardia with T wave inversions in lead 3 and V3 no significant change from previous. - Continue Lovenox - Cardiology cleared patient for discharge Bradycardia - Possibly due to beta windy. - Patient gets dizzy occasionally. His heart rate was found to be in the 30s. Now in the high 50s Hyperlipidemia - D/C Pravastatin and start Lipitor 40mg QHS. GERD - Patient's epigastric chest discomfort could be due to GERD. - We will continue him on Protonix 40mg BID - If Cardiac cath is negative for any acute findings, consider outpatient EGD. Hypothyroidism - Continue Levothyroxine 150 mcg Qday. Hypokalemia. Improved Hypophosphatemia. Start K-Phos and IV phosphorus replacement. Leukocytosis. Persistent. Obtain chest x-ray and urinalysis DVT prophylaxis with SCD and Lovenox. Discharge Planning Patient seen in ICU(CIC overflow) I spent 35 minutes [id number] with the patient or on the dunne discussing the patient's disposition, prognosis, and plan of care with patient's caregivers. Over half the time spent was devoted to counseling the patient regarding care with caregivers Jeanmarie Rich MD Aug 09, 2016 09:07
--- NOTE | 2016-08-09 09:54 | RADRPT ---
EXAM DATE/TIME: 08/09/2016 09:20 [facility] COMPARISON: No previous studies available for comparison. INDICATIONS : Chest pain. MEDICAL HISTORY : Cardiovascular disease. Gastroesophageal reflux disease. Hiatal hernia. SURGICAL HISTORY : Coronary artery stent. ENCOUNTER: Subsequent ACUITY: 2 days PAIN SCORE: 9/10 LOCATION: Bilateral chest FINDINGS: There is elevation of the right hemidiaphragm. The lungs are under aerated. There is very mild inte rstitial edema present. There is no alveolar consolidation, pleural effusion or pneumothorax. CONCLUSION: 1. Under aerated. 2. Mild interstitial edema. Emiliano Arndt MD FACR on August 09, 2016 at 9:48 Board Certified Radiologist. This report was verified electronically.
[2016-08-09 10:09] LABS: BACTERIA, URINE RARE /hpf; BLOOD, URINE TRACE (NEG); COMMENT (UR) CULT NOT INDICATED; CULTURE IF INDICATED CULT NOT INDICATED; GLUCOSE,URINE NEG (NEG); KETONE, URINE TRACE mg/dL (NEG); MUCUS URINE FEW /lpf (OCC); NITRITE,URINE NEG (NEG); URINE COLOR YELLOW (YELLW/STRAW)
[2016-08-09] MEDS: ENOXAPARIN SODIUM 40 MG/0.4 ML SYRINGE SQ SCH (12:00)
--- NOTE | 2016-08-09 15:54 | RADRPT ---
EXAM DATE/TIME: 08/09/2016 14:39 [facility] COMPARISON: CTA THORACIC ABDOMINAL AORTA W 3D RECON, August 07, 2016, 14:41. CT ABDOMEN & PELVIS W/O CONTRAST, Nov 2014, 17:30. INDICATIONS : Diffuse abdomen pain, evaluate for kidney stone. ORAL CONTRAST: Prescribed oral contrast ingested. RADIATION DOSE: 10.21 CTDIvol (mGy) MEDICAL HISTORY : Cardiovascular disease. Hypertension. GERD SURGICAL HISTORY : None. ENCOUNTER: Initial ACUITY: 4 - 6 days PAIN SCALE: 3/10 LOCATION: Bilateral upper quadrant TECHNIQUE: Volumetric scanning of the abdomen and pelvis was performed. Using automated exposure control and ad justment of the mA and/or kV according to patient size, radiation dose was kept as low as reasonably achievable to obtain optimal diagnostic quality images. DICOM format image data is available electro nically for review and comparison. FINDINGS: Minimal bibasilar parenchymal changes are evident. There is no effusion. Moderate artery calcifications are noted. Scattered low-density lesions are present the liver incompletely evaluated on today's exam. The gallbladder is distended with minimal pericholecystic changes that could represent cholecystitis. The spleen pancreas and adrenals unremarkable There are no renal calcifications The region of the cecum and the terminal unremarkable. Scattered diverticuli are present in the sigmoid colon without diverticulitis. Prostate is prominent Review of bone windows reveals only degenerative changes. CONCLUSION: Interval development of what may be cholecystitis.. Emiliano Arndt MD FACR on August 09, 2016 at 15:48 Board Certified Radiologist. This report was verified electronically.
[2016-08-09 17:04] LABS: HEMOGLOBIN A1a 0.7 %; HEMOGLOBIN A1b 0.8 %; HEMOGLOBIN Ao 86.4 %; HEMOGLOBIN F 0.7 %; HEMOGLOBIN P3 3.5 %
--- NOTE | 2016-08-09 18:07 | RADRPT ---
EXAM DATE/TIME: 08/09/2016 17:16 [facility] COMPARISON: CT ABDOMEN & PELVIS W/O CONTRAST, August 09, 2016, 14:39. INDICATIONS : Right upper quadrant pain. Abnormal CT with gallbladder distention and pericholecystic changes.. MEDICAL HISTORY : Hypercholesterolemia. Hypertension. Gastroesophageal reflux disease. Thyroid disease. Coronary artery disease. Irregular heartbeat. Anticoagulant therapy, Aspirin. Measles. SURGICAL HISTORY : Coronary artery stent. ENCOUNTER: Initial ACUITY: 1 day PAIN SCORE: 7/10 LOCATION: Right upper quadrant MEASUREMENTS: LIVER: 16.2 cm length COMMON DUCT: Non-visualized RIGHT KIDNEY: 12.3 x 6.4 x 6.5 cm FINDINGS: LIVER: The liver is at the upper limits of normal in size with 2 small cystic structures measuring 2.1 x 1.7 x 1.67 m and left lobe and 2.2 x 2.4 x 1.9 cm and the left lobe. There is no ductal dilatation. COMMON DUCT: Could not be visualized. There is no intrahepatic biliary ductal dilatation. GALLBLADDER: Abnormal in appearance with sludge layering dependently. There is a sludgeball versus noncalcified st one in the region of the neck. There is pericholecystic fluid with thickened gallbladder wall measuri ng up to 8 mm. PANCREAS: Suboptimal visualization. RIGHT KIDNEY: No evidence of hydronephrosis, stone, or mass. CONCLUSION: 1. Abnormal gallbladder with wall thickening and pericholecystic fluid. There is sludge with possible small stone. The findings remain of concern for cholecystitis. 2. The common bile duct was not distinctly visualized. There is no intrahepatic ductal dilatation. Cole Rossi MD on August 09, 2016 at 18:01 Board Certified Radiologist. This report was verified electronically.
[2016-08-09 18:41] LABS: ANION GAP 6 MEQ/L (5-15); AST (GOT) 14 U/L (15-37); BICARBONATE 27.5 MEQ/L (21.0-32.0); BLOOD UREA NITROGEN 9 MG/DL (7-18); CHLORIDE 102 MEQ/L (98-107); GLOMERULAR FILTRATION RATE 89 ML/MIN (>89); POTASSIUM 3.5 MEQ/L (3.5-5.1); SODIUM (NA) 135 MEQ/L (136-145)
[2016-08-09 18:42] LABS: ALT (GPT) 16 U/L (12-78)
[2016-08-09 18:45] LABS: ALKALINE PHOSPHATASE 60 U/L (45-117); TOTAL BILIRUBIN ADULT 1.1 MG/DL (0.2-1.0)
[2016-08-09] MEDS: MELATONIN 5 MG TAB PO SCH (20:23)
[2016-08-09] MEDS: ATORVASTATIN 40 MG TAB PO SCH (20:23)
--- NOTE | 2016-08-09 21:42 | MB ---
cc: JILL ALVA MD DATE OF CONSULTATION: 08/09/2016. REASON FOR CONSULTATION: Abdominal pain, rule out cholecystitis. HISTORY OF PRESENT ILLNESS: The patient is a 75-year-old male who presented with acute onset of chest pain and epigastric right-sided abdominal pain. He states the pain started approximately Friday and has continued to increase in severity and got significantly worse. He states the pain was 08/10, it was sharp, no relation to food and continued to get worse and therefore, the patient decided to come to the emergency department for further evaluation and workup. He was noted to be in a hypertensive urgency for which he was given appropriate medications and a nitro drip with improvement. He had further workup including CT angio without evidence of dissection and cardiac enzymes, EKGs showing bradycardia without evidence of acute coronary syndrome. He does have a history of cardiac stents placed in 2003. After improvement in blood pressure ruling out acute coronary syndrome patient with some sustained abdominal pain; therefore CT obtained which was concerning for gallbladder wall thickening and concern for cholecystitis. The patient did have a leukocytosis of 14.6. He denies fevers CMP done on 08/07/2016 is otherwise normal. Surgery was consulted for further evaluation. On my exam, the patient states his pain is approximately a 3/10 and it was more significant prior to IV pain medication but is still persistent. He states he has never had pain quite like this before and has no history of gallstones. PAST MEDICAL HISTORY: 1. Hypertension. 2. Coronary artery disease. 3. Hyperlipidemia. 4. Hypothyroidism. 5. Reflux. PAST SURGICAL HISTORY: 1. Coronary stent placement in 2003. MEDICATIONS: See the electronic medical record. ALLERGIES: THE PATIENT HAS NO KNOWN DRUG ALLERGIES. FAMILY HISTORY: Father with a heart attack. Mother with liver cancer. SOCIAL HISTORY: Occasional smoking cigars. Occasional EtOH. REVIEW OF SYSTEMS: GENERAL: The patient and denies eye pain, ear pain. neck: Denies swelling or pain. RESPIRATORY: Denies cough or wheeze. CHEST: Complains of chest pain. Denies palpitations. ABDOMEN: Complains of abdominal pain. Denies nausea or vomiting. : Denies dysuria or hematuria. ENDOCRINE: Denies polyuria or polydipsia. EXTREMITIES: Denies swelling or pain. PSYCHIATRIC: He denies change in mood or sensorium. PHYSICAL EXAMINATION GENERAL: The patient is no acute distress. VITAL SIGNS: Temperature 98.2, pulse 64, respirations 16, blood pressure 132/70, saturation 97%. HEAD, EYES, EARS, NOSE, THROAT: Pupils equal, round and reactive to light and accommodation. No scleral icterus. NECK: Supple. Trachea midline. LUNGS: Bilateral expansion. Clear. HEART: S1-S2, no murmur. ABDOMEN: Soft, positive tenderness to palpation epigastrium and right side and right upper quadrant. No rebound. EXTREMITIES: Warm and well-perfused. PSYCHIATRIC: Good insight good judgment. INTEGUMENT: No obvious masses or lesions. LABORATORY AND DIAGNOSTIC DATA: WBC is 14.6, hemoglobin 13.9, hematocrit 38.8, platelets 143,000. Comprehensive metabolic panel obtained on 08/07/2016: Sodium 142, potassium 3.6, chloride 106, BUN 15, creatinine 1. Total bilirubin 0.7. AST 26, ALT 27, alkaline phosphatase 66. Lipase 173. CT reviewed by myself concerning for gallbladder wall thickening and possible pericholecystic fluid. CTA shows no evidence of dissection. ASSESSMENT: The patient is 75-year-old male who presented with acute onset of chest pain, abdominal pain, epigastric pain with hypertensive emergency and concern for acute cholecystitis. PLAN: After full clinical radiologic laboratory workup, the patient with above-named issues, the patient is ruled out for acute coronary syndrome but did come in with a hypertensive emergency appropriately treated. The patient also with a history of coronary artery disease and cardiac stent placement. The patient does have CT findings with concern for possible acute cholecystitis. At this point, recommend obtaining a right upper quadrant ultrasound to further delineate the possibility of cholecystitis and to examine for sludge or stones. Further recommend repeat laboratory values today and obtain a CMP and lipase as repeat studies and recheck a CBC as well. Discussed with the patient in detail if ultrasound is concerning and the patient does confirm with a concerning exam, the patient may warrant a laparoscopic cholecystectomy; however, further discussion needs to be done with Dr. Eli and the primary team to deem the patient an appropriate candidate for surgical intervention. If the patient is not a candidate for surgical intervention, and he does indeed have acute cholecystitis, we will consider doing interventional radiology and a cholecystostomy tube. If ultrasound findings are non-concerning along with laboratory workup, then we will consider the patient able to be discharged home and have further workup for his abdominal pain as possible outpatient and consider possibly doing outpatient surgical intervention if symptoms increase or return. We will continue to follow the patient and delineate a more specific plan once laboratory and ultrasound findings have come back. Also, will discuss the patient is on anticoagulation and we will discuss whether the patient is safe to be off this prior to surgical intervention. MD ALISON Jim/BERNARD /9:12 PM /9:29 PM
[2016-08-10] VITALS (14 sets, daily range): BP systolic 113–158; BP diastolic 55–83; PULSE 54–66; RESP 16–20; TEMP 98–98.7; O2SAT 94–97
[2016-08-10 04:39] LABS: AUTOMATED NEUTROPHIL # 10.5 TH/MM3 (1.8-7.7); BASOPHIL % 0.2 % (0.0-2.0); EOSINOPHIL # 0.2 TH/MM3 (0-0.4); EOSINOPHIL % 1.4 % (0.0-4.0); HEMATOCRIT 37.1 % (39.0-51.0); HEMO FLAGS DIFF FINAL; LYMPH % 10.6 % (9.0-44.0); LYMPHOCYTE # 1.4 TH/MM3 (1.0-4.8); MEAN CELL VOLUME 94.3 FL (80.0-100.0); MEAN CORPUSCULAR HEMOGLOBIN 32.3 PG (27.0-34.0); MEAN CORPUSCULAR HGB CONC 34.2 % (32.0-36.0); MONO % 9.4 % (0.0-8.0); NEUT % 78.4 % (16.0-70.0); PLATELET COUNT 127 TH/MM3 (150-450); RED BLOOD COUNT 3.93 MIL/MM3 (4.50-5.90); WHITE BLOOD COUNT 13.4 TH/MM3 (4.0-11.0)
[2016-08-10 05:04] LABS: ANION GAP 6 MEQ/L (5-15); AST (GOT) 14 U/L (15-37); BICARBONATE 28.3 MEQ/L (21.0-32.0); BLOOD UREA NITROGEN 10 MG/DL (7-18); CHLORIDE 105 MEQ/L (98-107); GLOMERULAR FILTRATION RATE 95 ML/MIN (>89); MAGNESIUM 2.4 MG/DL (1.5-2.5); POTASSIUM 3.5 MEQ/L (3.5-5.1); SODIUM (NA) 139 MEQ/L (136-145)
[2016-08-10 05:08] LABS: ALKALINE PHOSPHATASE 60 U/L (45-117); ALT (GPT) 16 U/L (12-78); TOTAL BILIRUBIN ADULT 1.1 MG/DL (0.2-1.0)
[2016-08-10] MEDS: LEVOTHYROXINE SODIUM 150 MCG TAB PO SCH (05:51)
--- NOTE | 2016-08-10 07:43 | HHI.PR ---
Subjective Remarks Follow-up possible acute cholecystitis. Still having right upper quadrant pain. He wants to proceed with laparoscopic cholecystectomy. Discussed with RN to update cardiology regarding cardiac clearance Objective Vitals Vital Signs Date Time Temp Pulse Resp B/P Pulse Ox O2 Delivery O2 Flow Rate FiO2 08/10/16 06:00 58 08/10/16 05:00 57 08/10/16 04:00 55 08/10/16 04:00 98.0 55 18 113/55 94 08/10/16 04:00 Room Air 08/10/16 03:00 57 08/10/16 02:00 56 08/10/16 01:00 54 08/10/16 00:00 98.3 59 18 128/71 96 08/10/16 00:00 59 08/09/16 23:00 58 08/09/16 22:00 58 08/09/16 21:00 57 08/09/16 20:00 98.1 60 20 149/81 95 08/09/16 20:00 60 08/09/16 18:00 64 08/09/16 17:00 64 08/09/16 16:00 98.2 63 16 132/70 97 08/09/16 16:00 64 08/09/16 15:00 62 08/09/16 14:00 60 08/09/16 13:00 76 08/09/16 12:00 57 08/09/16 12:00 98.4 59 18 139/74 94 08/09/16 11:00 72 08/09/16 10:00 66 08/09/16 09:00 66 08/09/16 08:00 60 08/09/16 08:00 98.6 68 16 133/68 98 I/O 08/09/16 08/09/16 08/09/16 08/10/16 08/10/16 08/10/16 07:00 15:00 23:00 07:00 15:00 23:00 Intake Total 480 ml 870 ml 490 ml Output Total 775 ml 850 ml Balance 480 ml 95 ml -360 ml Intake Oral 480 ml 620 ml 480 ml IV Total 250 ml 10 ml Output Urine Total 775 ml 850 ml # Bowel Movements 1 0 Result Diagram: 08/10/16 0400 08/10/16 0400 Imaging Last Impressions Gall Bladder Ultrasound 08/09/16 0000 Signed Impressions: Service Date/Time: Tuesday, August 09, 2016 17:16 - CONCLUSION: 1. Abnormal gallbladder with wall thickening and pericholecystic fluid. There is sludge with possible small stone. The findings remain of concern for cholecystitis. 2. The common bile duct was not distinctly visualized. There is no intrahepatic ductal dilatation. Cole Rossi MD Chest X-Ray 08/09/16 0000 Signed Impressions: Service Date/Time: Tuesday, August 09, 2016 09:20 - CONCLUSION: 1. Under aerated. 2. Mild interstitial edema. Emiliano Arndt MD FACR Abdomen/Pelvis CT 08/09/16 0000 Signed Impressions: Service Date/Time: Tuesday, August 09, 2016 14:39 - CONCLUSION: Interval development of what may be cholecystitis.. Emiliano Arndt MD FACR Aorta CTA 08/07/16 0000 Signed Impressions: Service Date/Time: Sunday, August 07, 2016 14:41 - CONCLUSION: There is no dissection. Marked artery calcifi is noted especially LAD. Mild cardiomegaly. There is no pericardial effusion. Emiliano Arndt MD FACR Objective Remarks GENERAL: This is a well-nourished, well-developed patient, in no apparent distress. SKIN: No rashes, ecchymoses or lesions. Warm and dry. HEAD: Atraumatic. Normocephalic. No temporal or scalp tenderness. EYES: Pupils equal round and reactive. No injection or drainage. ENT: Nose without bleeding, purulent drainage or septal hematoma. Airway patent. NECK: Trachea midline. No lymphadenopathy. Supple, nontender, no meningeal signs. CARDIOVASCULAR: Regular rhythm, bradycardic without murmurs, gallops, or rubs. No JVD. RESPIRATORY: Clear to auscultation. Breath sounds equal bilaterally. No wheezes , rales, or rhonchi. GASTROINTESTINAL: Abdomen soft, tender right upper quadrant, nondistended. No guarding. MUSCULOSKELETAL: Extremities without clubbing, cyanosis, or edema. NEUROLOGICAL: Awake and alert. Cranial nerves II through XII intact. No focal neurological deficits. Normal speech. Procedures none A/P Problem List: (1) Hypertensive urgency ICD Code: I16.0 Status: Resolved (2) Chest pain ICD Code: R07.9 Status: Acute (3) Symptomatic bradycardia ICD Code: R00.1 Status: Resolved (4) GERD (gastroesophageal reflux disease) ICD Code: K21.9 Status: Chronic (5) Hypertension ICD Code: I10 Status: Chronic (6) Hypothyroidism ICD Code: E03.9 Status: Chronic (7) CAD (coronary artery disease) ICD Code: I25.10 Status: Chronic Assessment and Plan Mr. San is a pleasant 75-year-old male with a history of hypertension, CAD, GERD who presents to the emergency department due to severe epigastric pain radiating to his back that started after he walked 1.5 miles in the morning around 6 AM. His pain subsided after he came to the emergency department where he was found to have blood pressure 224/95. Possible acute cholecystitis with leukocytosis. Start IV Unasyn. Surgery has been consulted recommending laparoscopic cholecystectomy which patient wants to proceed. Will obtain cardiac clearance Hypertensive urgency. Improved - Patient was started on nitroglycerine drip in the ED. Currently, BP is in the 140s range systolic. - Weaned off nitro drip. - Continue Amlodipine 5mg Qday and Lisinopril 10mg Qday. - Continue Carvedilol with holding parameters. Coronary artery disease Acute chest pain. Atypical chest pain. Ruled out for SC. Negative stress test 6 months ago. Doubt PE no risk factors. Patient not hypoxic - Patient has a cardiac stent [place] [address] Eli. - Received Aspirin 162mg. - Received Morphine which improved his epigastric chest discomfort. - EKG, CXR reviewed by me. EKG shows bradycardia with T wave inversions in lead 3 and V3 no significant change from previous. - Continue Lovenox - Cardiology cleared patient for discharge Bradycardia - Possibly due to beta windy. - Patient gets dizzy occasionally. His heart rate was found to be in the 30s. Improved Hyperlipidemia - D/C Pravastatin and start Lipitor 40mg QHS. GERD - We will continue him on Protonix 40mg BID Hypothyroidism - Continue Levothyroxine 150 mcg Qday. Hypokalemia. Improved Hypophosphatemia. Persistent will increase K phosphorous to 1000 mg 3 times a day DVT prophylaxis with SCD and Lovenox. Discharge Planning Discharge when cleared by general surgery Jeanmarie Rich MD Aug 10, 2016 07:43
[2016-08-10] MEDS: SODIUM CHLORIDE 0.9% FLUSH 10 ML FLUSH IV FLUSH SCH ×2 (08:09→20:03)
[2016-08-10] MEDS: AMPICILLIN-SULBACTAM INJ 3 GM in SODIUM CHLORIDE 0.9% INJ 100 ML IV SCH ×3 (08:09→20:03)
[2016-08-10] MEDS: MULTIVITAMINS/MINERALS THERAPEUTIC TAB PO SCH (08:09)
[2016-08-10] MEDS: FOLIC ACID 1 MG TAB PO SCH (08:10)
[2016-08-10] MEDS: amLODIPine BESYLATE 5 MG TAB PO SCH (08:10)
[2016-08-10] MEDS: CARVEDILOL 3.125 MG TAB PO SCH ×2 (08:10→20:04)
[2016-08-10] MEDS: DOCUSATE SODIUM 50 MG/SENNA 8.6 MG TAB PO SCH ×2 (08:10→20:04)
[2016-08-10] MEDS: LISINOPRIL 10 MG TAB PO SCH (08:10)
[2016-08-10] MEDS: THIAMINE HCL 100 MG TAB PO SCH (08:10)
[2016-08-10] MEDS: PANTOPRAZOLE SOD 40 MG DELAYED RELEASE TAB PO SCH ×2 (08:10→20:04)
[2016-08-10] MEDS: POTASSIUM PHOSPHATE MONOBASIC 500 MG TAB PO SCH ×2 (08:11→18:45)
[2016-08-10] MEDS: ASPIRIN EC 81 MG TABEC PO SCH (08:11)
--- NOTE | 2016-08-10 10:55 | HHI.PR ---
Subjective Subjective Notes midepigastric and RUQ pain. Ate small breakfast at 7:15. Objective Vitals/I&O Vital Signs Date Time Temp Pulse Resp B/P Pulse Ox O2 Delivery O2 Flow Rate FiO2 08/10/16 08:06 96 Room Air 08/10/16 08:06 98.7 58 16 122/62 08/07/16 19:59 2 Labs Laboratory Tests Test 08/09/16 08/10/16 18:16 04:00 Sodium Level 135 139 Potassium Level 3.5 3.5 Chloride Level 102 105 Carbon Dioxide Level 27.5 28.3 Anion Gap 6 6 Blood Urea Nitrogen 9 10 Creatinine 0.84 0.79 Estimat Glomerular Filtration 89 95 Rate Random Glucose 126 109 Calcium Level 9.0 8.7 Total Bilirubin 1.1 1.1 Aspartate Amino Transf 14 14 (AST/SGOT) Alanine Aminotransferase 16 16 (ALT/SGPT) Alkaline Phosphatase 60 60 Total Protein 6.6 6.4 Albumin 3.1 2.8 Lipase 81 White Blood Count 13.4 Red Blood Count 3.93 Hemoglobin 12.7 Hematocrit 37.1 Mean Corpuscular Volume 94.3 Mean Corpuscular Hemoglobin 32.3 Mean Corpuscular Hemoglobin 34.2 Concent Red Cell Distribution Width 13.0 Platelet Count 127 Mean Platelet Volume 8.0 Neutrophils (%) (Auto) 78.4 Lymphocytes (%) (Auto) 10.6 Monocytes (%) (Auto) 9.4 Eosinophils (%) (Auto) 1.4 Basophils (%) (Auto) 0.2 Neutrophils # (Auto) 10.5 Lymphocytes # (Auto) 1.4 Monocytes # (Auto) 1.3 Eosinophils # (Auto) 0.2 Basophils # (Auto) 0.0 CBC Comment DIFF FINAL Differential Comment Phosphorus Level 2.0 Magnesium Level 2.4 Cardiovascular: Regular, Other (2/6 CANDIDA) Lungs: Clear Abdomen: Non-distended, Other (R subcostal tenderness to palpation.) Extremities: No edema, Perfused A/P Assessment and Plan Cholecystitis. H/O hypertension, now controlled. H/O cardiac stent in 2003. Denies chest pain, mows an acre and a half by himself , walks a mile and a half every day, can go up a flight of stairs without SOB or chest pain. Sees Dr Anil Eli regularly. I recommended lap pawan, possible open, offered later today vs in AM, he desires today if possible. Plan to OR this afternoon for lap pawan. I reviewed the procedure in detail, risks- bleeding, infection, injury to liver , bile ducts, intestine, possible open, DVT/PE, NM, and expectations for recovery. He understands, and, again, wishes to proceed. Anil Hyatt MD Aug 10, 2016 10:55
[2016-08-10] MEDS ORDERED: metroNIDAZOLE 500 MG INJ 100 ML IV SCH (11:00)
[2016-08-10] MEDS ORDERED: ceFAZolin 2 GM PREMIX 50 ML IV SCH (11:00)
[2016-08-10] MEDS ORDERED: ePHEDrine/NS 25 MG/5 ML SYR IV ONE (12:00)
[2016-08-10] MEDS ORDERED: PROPOFOL 200 MG/20 ML AMP IV ONE (12:00)
[2016-08-10] MEDS ORDERED: LACTATED RINGER'S 1000 ML INJ 2,000 ML IV ONE (12:00)
[2016-08-10] MEDS ORDERED: NEOSTIGMINE 3 MG/3 ML SYR IV ONE (12:00)
[2016-08-10] MEDS ORDERED: ONDANSETRON HCL 4 MG/2 ML VIAL IV PUSH ONE (12:00)
[2016-08-10] MEDS ORDERED: BUPIVACAINE/EPINEPHRINE 0.5% 50 ML VIAL ONE ×2 (13:00→13:03)
[2016-08-10] MEDS: ENOXAPARIN SODIUM 40 MG/0.4 ML SYRINGE SQ SCH (13:00)
[2016-08-10] MEDS ORDERED: fentaNYL CITRATE 250 MCG/5 ML AMP ONE (13:44)
[2016-08-10] MEDS ORDERED: Post-op Orders (for Pharmacy) MISC XX ONE (15:10)
[2016-08-10] MEDS ORDERED: SODIUM CHLORIDE 0.9% FLUSH 10 ML FLUSH IV FLUSH PRN (15:15)
[2016-08-10] MEDS ORDERED: ACETAMINOPHEN/HYDROcodone 325 MG/5 MG TAB PO PRN (15:15)
[2016-08-10] MEDS ORDERED: MAGNESIUM HYDROXIDE SUSP 30 ML CUP PO PRN (15:15)
--- NOTE | 2016-08-10 15:15 | PD.OP ---
Operative Report Date of Surgery: Aug 10, 2016 Preoperative Diagnosis: cholecystitis Postoperative Diagnosis: gangrenous cholecystitis Procedure: lap pawan Anesthesia: general Surgeon: Anil Hyatt Cash Processing Specialist(s): Adrien Operation and Findings: gangrenous GB to pathology. EBL 25 ml. Anil Hyatt MD Aug 10, 2016 15:15
[2016-08-10] MEDS ORDERED: DO NOT ADM ANY ANTICOAGULANT DRUGS PRN (15:16)
[2016-08-10] MEDS: LACTATED RINGER'S 1000 ML INJ 1,000 ML IV SCH (15:42)
[2016-08-10] MEDS: ACETAMINOPHEN 1000 MG/100 ML VIAL IV SCH ×2 (16:41→21:31)
[2016-08-10] MEDS: ATORVASTATIN 40 MG TAB PO SCH (20:04)
[2016-08-10] MEDS: ACETAMINOPHEN/HYDROcodone 325 MG/5 MG TAB PO PRN ×2 (20:05→23:42)
[2016-08-10] MEDS: MELATONIN 5 MG TAB PO SCH (20:07)
[2016-08-10] MEDS ORDERED: DOCUSATE SODIUM 100 MG CAP PO SCH (21:00)
[2016-08-11] VITALS (10 sets, daily range): BP systolic 128–139; BP diastolic 69–81; PULSE 50–59; RESP 18; TEMP 98.1–98.6; O2SAT 93–98
[2016-08-11] MEDS: AMPICILLIN-SULBACTAM INJ 3 GM in SODIUM CHLORIDE 0.9% INJ 100 ML IV SCH ×2 (00:47→08:39)
[2016-08-11] MEDS: LACTATED RINGER'S 1000 ML INJ 1,000 ML IV SCH (00:49)
[2016-08-11] MEDS: MORPHINE SULFATE 4 MG/ML INJ IV PUSH PRN ×2 (03:22→05:51)
[2016-08-11] MEDS: ACETAMINOPHEN 1000 MG/100 ML VIAL IV SCH ×2 (03:22→08:41)
[2016-08-11] MEDS: ACETAMINOPHEN/HYDROcodone 325 MG/5 MG TAB PO PRN (03:55)
[2016-08-11] MEDS: LEVOTHYROXINE SODIUM 150 MCG TAB PO SCH (05:05)
--- NOTE | 2016-08-11 05:16 | MP ---
cc: PRISCILLA GRANADOS MD, DAVID G. M.D. DATE OF SURGERY: 08/10/2016 PREOPERATIVE DIAGNOSIS: Cholecystitis. POSTOPERATIVE DIAGNOSIS: Gangrenous cholecystitis. OPERATION: Laparoscopic cholecystectomy SURGEON: Dr. Anil Hyatt. ANESTHESIA: General. INDICATIONS: This is a 75 year-old man with a history of coronary artery disease who developed severe epigastric pain. He was worked up for cardiac reasons. The workup was negative. He was seen by Dr. Szymanski who believed his etiology was noncardiac. CT scan and ultrasound demonstrated abnormal gallbladder with thickened wall and pericholecystic inflammatory changes. Physical exam demonstrated acute discomfort to palpation of the right upper quadrant. Recommendations are made for laparoscopic cholecystectomy. INTRAOPERATIVE FINDINGS Gangrenous changes with a distended thickened gallbladder wall with patches of green gangrenous change. Gallbladder removed in its entirety and passed off the field for pathology. ESTIMATED BLOOD LOSS 25 mL DESCRIPTION OF PROCEDURE IN DETAIL The patient identified as Neno San, taken to the operating room, placed in supine position. Sequential compression devices were placed on bilateral lower extremities. Following induction of adequate general endotracheal anesthesia, the patient's abdomen was prepped and draped in usual sterile fashion with Betadine. A time-out procedure was performed. Following completion of time-out procedure to everyone's satisfaction within the room a supraumbilical 2-cm vertical incision carried out with scalpel. Dissection carried posteriorly to the level of the midline fascia. The base of the umbilicus was retracted anteriorly. The fascia was incised in vertical fashion which allowed for entry of the peritoneal cavity with the surgeon's finger. The [employer] balloon Robert trocar was placed in the peritoneal cavity, its balloon inflated to insufflation until a level of 15 mmHg ensued. The patient was placed in a reverse Trendelenburg position. Two upper abdominal 5 mm trocars and ultimately a third 5 mm trocar were placed into the peritoneal cavity under direct laparoscopic view after incision of the skin with a scalpel. Gallbladder was covered with an inflammatory rind which was peeled back with blunt dissection using graspers and the suction irrigation device. This revealed a gallbladder with gangrenous changes in the wall. The gallbladder was thickened and non-graspable. It was decompressed at its apex with the suction irrigation device and harmonic scalpel. The gallbladder was then removed from the gallbladder fossa in a dome down technique using the harmonic scalpel and suction dissection. The dissection continued posteriorly down to the level of the gallbladder cystic duct junction. The cystic artery was divided with a harmonic scalpel. The cystic duct was ligated with 0-PDS Endoloop and the gallbladder amputated directly at its junction with the cystic duct. The gallbladder was placed into an Endo-retriever bag and removed through the supraumbilical fascial port incision site, passed off the field for pathologic evaluation. The right upper quadrant was copiously irrigated with saline. The gallbladder fossa was raw. It was covered with Oriana hemostatic agent. The cystic duct ligature remained intact. The cystic arterial stump was hemostatic. There was no bloody or bilious drainage. Remaining local anesthetic was placed in subdiaphragmatic position. Trocars were removed under direct visualization. There was no evidence of bleeding from trocar sites. The abdomen was desufflated through the supraumbilical port. Supraumbilical fascial skin incision had to be lengthened in order to remove this distended thickened gallbladder. The fascia was closed with multiple interrupted 0 Vicryl sutures. All port sites were irrigated copiously with saline and skin incisions were approximated with 4-0 Monocryl subcuticular sutures. Dressings were applied with Mastisol, half inch brown Steri-Strips. The patient tolerated the procedure without apparent complication. Sponge, needle and instrument counts were correct at the end of the case. MD NADIA Palma/CL[place] /3:18 PM /5:07 AM
[2016-08-11 06:16] LABS: BICARBONATE 26.1 MEQ/L (21.0-32.0); POTASSIUM 3.6 MEQ/L (3.5-5.1)
[2016-08-11] MEDS: amLODIPine BESYLATE 5 MG TAB PO SCH (08:39)
[2016-08-11] MEDS: PANTOPRAZOLE SOD 40 MG DELAYED RELEASE TAB PO SCH (08:39)
[2016-08-11] MEDS: MULTIVITAMINS/MINERALS THERAPEUTIC TAB PO SCH (08:39)
[2016-08-11] MEDS: CARVEDILOL 3.125 MG TAB PO SCH (08:39)
[2016-08-11] MEDS: ASPIRIN EC 81 MG TABEC PO SCH (08:39)
[2016-08-11] MEDS: POTASSIUM PHOSPHATE MONOBASIC 500 MG TAB PO SCH (08:39)
[2016-08-11] MEDS: LISINOPRIL 10 MG TAB PO SCH (08:40)
[2016-08-11] MEDS: SODIUM CHLORIDE 0.9% FLUSH 10 ML FLUSH IV FLUSH SCH (08:40)
[2016-08-11] MEDS: THIAMINE HCL 100 MG TAB PO SCH (08:40)
[2016-08-11] MEDS: DOCUSATE SODIUM 50 MG/SENNA 8.6 MG TAB PO SCH ×2 (08:40→09:00)
[2016-08-11] MEDS: FOLIC ACID 1 MG TAB PO SCH (08:40)
[2016-08-11] MEDS ORDERED: HYDR-3533 PO (09:15)
--- NOTE | 2016-08-11 09:18 | HHI.PR ---
Subjective Subjective Notes doing well, wants to go home, was doing exercises in the hallway. Tolerating po, no pain. Objective Vitals/I&O Vital Signs Date Time Temp Pulse Resp B/P Pulse Ox O2 Delivery O2 Flow Rate FiO2 08/11/16 08:21 98.1 59 18 128/72 98 08/11/16 07:35 Nasal Cannula 2.00 Labs Laboratory Tests Test 08/11/16 04:52 Sodium Level 138 Potassium Level 3.6 Chloride Level 105 Carbon Dioxide Level 26.1 Anion Gap 7 Blood Urea Nitrogen 10 Creatinine 0.77 Estimat Glomerular Filtration 98 Rate Random Glucose 112 Calcium Level 8.4 Magnesium Level 2.0 Abdomen: Non-distended, Non-tender, Other (incisions all healing well with steri strips, no erythema.) Extremities: No edema, Perfused A/P Assessment and Plan POD 1 lap pawan for gangrenous cholecystitis. Doing well, wants to go home. Needs no antibiotics. Wants scrip for pain med just in case. No abdominal strain. Stay hydrated, avoid heavy foods, spicy foods for a few days. May shower. Follow up with me in 1-2 weeks. Anil Hyatt MD Aug 11, 2016 09:18
--- NOTE | 2016-08-11 09:26 | HHI.PR ---
Subjective Remarks Follow-up cholecystitis. Doing well wants to go home. Tolerating po. Seen with family dw RN Objective Vitals Vital Signs Date Time Temp Pulse Resp B/P Pulse Ox O2 Delivery O2 Flow Rate FiO2 08/11/16 09:17 18 08/11/16 08:21 98.1 59 18 128/72 98 08/11/16 08:21 59 08/11/16 07:35 98 Nasal Cannula 2.00 08/11/16 06:00 50 08/11/16 05:00 57 08/11/16 04:00 52 08/11/16 04:00 98.1 52 18 130/69 97 08/11/16 04:00 Room Air 08/11/16 03:00 55 08/11/16 02:00 58 08/11/16 01:00 54 08/11/16 00:00 98.6 55 18 139/81 97 08/11/16 00:00 55 08/11/16 00:00 Room Air 08/10/16 23:00 57 08/10/16 22:00 56 08/10/16 21:00 57 08/10/16 20:00 60 08/10/16 20:00 98.3 60 20 148/83 96 08/10/16 20:00 Room Air 08/10/16 16:54 98.6 64 18 151/80 97 08/10/16 16:54 66 08/10/16 15:45 98.7 60 20 145/71 95 Nasal Cannula 2 08/10/16 15:30 57 20 146/70 95 Nasal Cannula 2 08/10/16 15:16 98.7 55 20 159/68 100 Nasal Cannula 4 08/10/16 12:13 98.6 66 16 158/78 96 08/10/16 12:13 62 I/O 08/10/16 08/10/16 08/10/16 08/11/16 08/11/16 08/11/16 07:00 15:00 23:00 07:00 15:00 23:00 Intake Total 490 ml 2395 ml 2080 ml Output Total 850 ml 420 ml 900 ml Balance -360 ml 1975 ml 1180 ml Intake Oral 480 ml 1250 ml 480 ml IV Total 10 ml 45 ml 1600 ml Other 1100 ml Output Urine Total 850 ml 400 ml 900 ml Estimated Blood Loss 20 ml # Voids 3 # Bowel Movements 0 0 Result Diagram: 08/10/16 0400 08/11/16 0452 Objective Remarks GENERAL: This is a well-nourished, well-developed patient, in no apparent distress. SKIN: No rashes, ecchymoses or lesions. Warm and dry. HEAD: Atraumatic. Normocephalic. No temporal or scalp tenderness. EYES: Pupils equal round and reactive. No injection or drainage. ENT: Nose without bleeding, purulent drainage or septal hematoma. Airway patent. NECK: Trachea midline. No lymphadenopathy. Supple, nontender, no meningeal signs. CARDIOVASCULAR: Regular rhythm, bradycardic without murmurs, gallops, or rubs. No JVD. RESPIRATORY: Clear to auscultation. Breath sounds equal bilaterally. No wheezes , rales, or rhonchi. GASTROINTESTINAL: Abdomen soft, tender right upper quadrant, nondistended. No guarding. Trocar sites uninfected MUSCULOSKELETAL: Extremities without clubbing, cyanosis, or edema. NEUROLOGICAL: Awake and alert. Cranial nerves II through XII intact. No focal neurological deficits. Normal speech. Procedures Laparoscopic cholecystectomy A/P Problem List: (1) Hypertensive urgency ICD Code: I16.0 Status: Resolved (2) Chest pain ICD Code: R07.9 Status: Acute (3) Symptomatic bradycardia ICD Code: R00.1 Status: Resolved (4) GERD (gastroesophageal reflux disease) ICD Code: K21.9 Status: Chronic (5) Hypertension ICD Code: I10 Status: Chronic (6) Hypothyroidism ICD Code: E03.9 Status: Chronic (7) CAD (coronary artery disease) ICD Code: I25.10 Status: Chronic Assessment and Plan Mr. San is a pleasant 75-year-old male with a history of hypertension, CAD, GERD who presents to the emergency department due to severe epigastric pain radiating to his back that started after he walked 1.5 miles in the morning around 6 AM. His pain subsided after he came to the emergency department where he was found to have blood pressure 224/95. Gangrenous cholecystitis with leukocytosis. Status post laparoscopic cholecystectomy. He is doing well. Wound care, pain management with Lortab and IV morphine. Hypertensive urgency. Improved - Patient was started on nitroglycerine drip in the ED. Currently, BP is in the 140s range systolic. - Weaned off nitro drip. - Continue Amlodipine 5mg Qday and Lisinopril 10mg Qday. - Continue Carvedilol with holding parameters. Coronary artery disease Acute chest pain. Atypical chest pain. Ruled out for NM. Negative stress test 6 months ago. Doubt PE no risk factors. Patient not hypoxic - Patient has a cardiac stent [place] [address] Eli. - Received Aspirin 162mg. - Received Morphine which improved his epigastric chest discomfort. - EKG, CXR reviewed by me. EKG shows bradycardia with T wave inversions in lead 3 and V3 no significant change from previous. - Continue Lovenox - Cardiology cleared patient for discharge Bradycardia - Possibly due to beta windy. - Patient gets dizzy occasionally. His heart rate was found to be in the 30s. Improved Hyperlipidemia - D/C Pravastatin and start Lipitor 40mg QHS. GERD - We will continue him on Protonix 40mg BID Hypothyroidism - Continue Levothyroxine 150 mcg Qday. Hypokalemia. Improved Hypophosphatemia. Persistent will increase K phosphorous to 1000 mg 3 times a day DVT prophylaxis with SCD and Lovenox. Discharge Planning Stable for discharge Jeanmarie Rich MD Aug 11, 2016 09:26
--- NOTE | 2016-08-11 10:40 | HHI.DS ---
Discharge Summary Admission Date Aug 07, 2016 at 15:54 Discharge Date: Aug 11, 2016 Admitting Diagnosis hypertensive urgency (1) Hypertensive urgency ICD Code: I16.0 Diagnosis: Principal (2) Chest pain ICD Code: R07.9 Diagnosis: Principal (3) GERD (gastroesophageal reflux disease) ICD Code: K21.9 Diagnosis: Secondary (4) Hypertension ICD Code: I10 Diagnosis: Secondary (5) Hypothyroidism ICD Code: E03.9 Diagnosis: Secondary (6) CAD (coronary artery disease) ICD Code: I25.10 Diagnosis: Secondary Procedures Laparoscopic cholecystectomy Brief History - From Admission Mr. San is a pleasant 75-year-old male with a history of hypertension, CAD status post stent placement in 2003 who presents to the emergency department with epigastric discomfort that started this morning after he walked 1 and half mile. For the last 2-3 days, patient has been experiencing some epigastric discomfort. However this morning around 6 AM after he walked his usual 1.5 miles, he started having constant epigastric chest discomfort radiating to the back between the shoulder blades. He reports more than usual sweating with this episode as well. He also reports some dizziness during exertion. He denies any radiation of this chest discomfort to neck, jaw, shoulder or arms. No nausea vomiting. No shortness of breath, cough or fever or chills. Patient denies any changes in bowel or bladder habits. On arrival blood pressure 224/95, heart rate 37, respirations 16, temperature 97.8, pulse ox 100% on 2 L. No leukocytosis. Troponin 0.02. Lipase 173. EKG showed bradycardia (HR 35) and T wave inversions in Lead II, V3. Aorta CTA was performed due to suspicion over aortic dissection. Aorta CTA shows no dissection but shows markedly artery calcifi noted especially LAD. Patient's java web user interface developer is Dr. Eli whose partner Dr. Taveras was contacted by ED provider. Dr. Taveras recommended anticoagulation and transferring patient to the [facility] for possible cardiac catheterization. CBC/BMP: 08/10/16 0400 08/11/16 0452 Significant Findings Laboratory Tests Test 6/08/09/16 08/09/16 08/10/16 05:40 08:30 18:16 04:00 White Blood Count 14.6 TH/MM3 13.4 TH/MM3 (4.0-11.0) (4.0-11.0) Red Blood Count 4.17 MIL/MM3 3.93 MIL/MM3 (4.50-5.90) (4.50-5.90) Hematocrit 38.8 % 37.1 % (39.0-51.0) (39.0-51.0) Platelet Count 143 TH/MM3 127 TH/MM3 (150-450) (150-450) Neutrophils (%) (Auto) 80.9 % 78.4 % (16.0-70.0) (16.0-70.0) Lymphocytes (%) (Auto) 8.3 % (9.0-44.0) Monocytes (%) (Auto) 9.9 % (0.0-8.0) 9.4 % (0.0-8.0) Neutrophils # (Auto) 11.8 TH/MM3 10.5 TH/MM3 (1.8-7.7) (1.8-7.7) Monocytes # (Auto) 1.4 TH/MM3 1.3 TH/MM3 (0-0.9) (0-0.9) Random Glucose 120 MG/DL 126 MG/DL 109 MG/DL (74-106) (74-106) (74-106) Phosphorus Level 1.6 MG/DL 2.0 MG/DL (2.5-4.9) (2.5-4.9) Urine Protein 30 mg/dL (NEG-TRACE) Urine Ketones TRACE mg/dL (NEG) Urine Occult Blood TRACE (NEG) Urine RBC 11 /hpf (0-3) Urine Bacteria RARE /hpf (NONE) Urine Mucus FEW /lpf (OCC) Sodium Level 135 MEQ/L (136-145) Total Bilirubin 1.1 MG/DL 1.1 MG/DL (0.2-1.0) (0.2-1.0) Aspartate Amino Transf 14 U/L (15-37) 14 U/L (15-37) (AST/SGOT) Albumin 3.1 GM/DL 2.8 GM/DL (3.4-5.0) (3.4-5.0) Hemoglobin 12.7 GM/DL (13.0-17.0) Test 08/11/16 04:52 Random Glucose 112 MG/DL (74-106) Calcium Level 8.4 MG/DL (8.5-10.1) Imaging Last Impressions Gall Bladder Ultrasound 08/09/16 0000 Signed Impressions: Service Date/Time: Tuesday, August 09, 2016 17:16 - CONCLUSION: 1. Abnormal gallbladder with wall thickening and pericholecystic fluid. There is sludge with possible small stone. The findings remain of concern for cholecystitis. 2. The common bile duct was not distinctly visualized. There is no intrahepatic ductal dilatation. Cole Rossi MD Chest X-Ray 08/09/16 0000 Signed Impressions: Service Date/Time: Tuesday, August 09, 2016 09:20 - CONCLUSION: 1. Under aerated. 2. Mild interstitial edema. Emiliano Arndt MD FACR Abdomen/Pelvis CT 08/09/16 0000 Signed Impressions: Service Date/Time: Tuesday, August 09, 2016 14:39 - CONCLUSION: Interval development of what may be cholecystitis.. Emiliano Arndt MD FACR Aorta CTA 08/07/16 0000 Signed Impressions: Service Date/Time: Sunday, August 07, 2016 14:41 - CONCLUSION: There is no dissection. Marked artery calcifi is noted especially LAD. Mild cardiomegaly. There is no pericardial effusion. Emiliano Arndt MD FACR PE at Discharge GENERAL: This is a well-nourished, well-developed patient, in no apparent distress. SKIN: No rashes, ecchymoses or lesions. Warm and dry. HEAD: Atraumatic. Normocephalic. No temporal or scalp tenderness. EYES: Pupils equal round and reactive. No injection or drainage. ENT: Nose without bleeding, purulent drainage or septal hematoma. Airway patent. NECK: Trachea midline. No lymphadenopathy. Supple, nontender, no meningeal signs. CARDIOVASCULAR: Regular rhythm, bradycardic without murmurs, gallops, or rubs. No JVD. RESPIRATORY: Clear to auscultation. Breath sounds equal bilaterally. No wheezes , rales, or rhonchi. GASTROINTESTINAL: Abdomen soft, tender right upper quadrant, nondistended. No guarding. Trocar sites uninfected MUSCULOSKELETAL: Extremities without clubbing, cyanosis, or edema. NEUROLOGICAL: Awake and alert. Cranial nerves II through XII intact. No focal neurological deficits. Normal speech. Hospital Course Mr. San is a pleasant 75-year-old male with a history of hypertension, CAD, GERD who presents to the emergency department due to severe epigastric pain radiating to his back that started after he walked 1.5 miles in the morning around 6 AM. His pain subsided after he came to the emergency department where he was found to have blood pressure 224/95. Gangrenous cholecystitis with leukocytosis. Status post laparoscopic cholecystectomy. He is doing well. Wound care, pain management with Lortab and IV morphine. Hypertensive urgency. Improved - Patient was started on nitroglycerine drip in the ED. Currently, BP is in the 140s range systolic. - Weaned off nitro drip. - Continue Amlodipine 5mg Qday and Lisinopril 10mg Qday. - Continue Carvedilol with holding parameters. Coronary artery disease Acute chest pain. Atypical chest pain. Ruled out for ID. Negative stress test 6 months ago. Doubt PE no risk factors. Patient not hypoxic - Patient has a cardiac stent [place] [address] Eli. - Received Aspirin 162mg. - Received Morphine which improved his epigastric chest discomfort. - EKG, CXR reviewed by me. EKG shows bradycardia with T wave inversions in lead 3 and V3 no significant change from previous. - Continue Lovenox - Cardiology cleared patient for discharge Bradycardia - Possibly due to beta windy. - Patient gets dizzy occasionally. His heart rate was found to be in the 30s. Improved Hyperlipidemia - D/C Pravastatin and start Lipitor 40mg QHS. GERD - We will continue him on Protonix 40mg BID Hypothyroidism - Continue Levothyroxine 150 mcg Qday. Hypokalemia. Improved Hypophosphatemia. Persistent will increase K phosphorous to 1000 mg 3 times a day DVT prophylaxis with SCD and Lovenox. Pt Condition on Discharge: Stable Discharge Disposition: Discharge Home Discharge Time: > 30 minutes Discharge Instructions DIET: Follow Instructions for: Heart Healthy Diet Activities you can perform: Regular-No Restrictions Activities to Avoid: Driving Follow up Referrals: Cardiology - 1 Week Gastroenterology - 1 Week PCP Follow-up - 1 Week Surgical - 2 Weeks with Anil Hyatt MD New Orders: BASIC METABOLIC PROF - 08/12/16 PHOSPHORUS (PO4) - 08/12/16 New Medications: Hydrocodone-Acetaminophen (Lortab) 5-325 Mg Tab 1 TAB PO Q4H PRN PAIN #15 Ref 0 TAB Potassium Phosphate Monobasic (K-Phos) 500 Mg Tab 1000 MG PO PCHS Electrolyte Replacement #3 Ref 0 TAB Pantoprazole (Pantoprazole) 40 Mg Tab 40 MG PO Q12HR Manage Heartburn #60 TAB Sennosides-Docusate Sodium (Senna Plus 8.6-50 mg) 1 Tab Tab 1 TAB PO BID Prevent Constipation #60 TAB Thiamine HCl (Gnp Vitamin B-1) 100 Mg Tab 100 MG PO DAILY Alcohol Detox #30 TAB Continued Medications: Amlodipine (Amlodipine) 5 Mg Tab 5 MG PO DAILY Blood Pressure Management #[address] (Aspir-81) 81 Mg Tabdr Carvedilol (Carvedilol) 3.125 Mg Tab 3.125 MG PO BID #60 Ref 0 TAB Levothyroxine (Synthroid) 150 Mcg Tab 150 MCG PO DAILY Thyroid #30 Ref 0 TAB Lisinopril (Lisinopril) 10 Mg Tab 10 MG PO DAILY #30 Ref 0 TAB Magnesium Oxide (Magox 400) 400 Mg Tablet Melatonin (Melatonin) 5 Mg Tab 5 MG PO HS Provide Good Sleep Ref 0 TAB Ropinirole (Ropinirole) 1 Mg Tab 1.5 MG PO 5pm #30 Ref 0 TAB Ropinirole (Ropinirole) 1 Mg Tab 1.5 MG PO 7pm #30 Ref 0 TAB Simvastatin (Simvastatin) 10 Mg Tab 10 MG PO DAILY Cholesterol Management #30 Ref 0 TAB Additional Information I spent 35 minutes [id number] with the patient or on the dunne discussing the patient's disposition, prognosis, and plan of care with patient's caregivers. Over half the time spent was devoted to counseling the patient regarding placement in coordinating care with caregivers and case management. Jeanmarie Rich MD Aug 11, 2016 10:40
[2016-08-11] MEDS ORDERED: ENOXAPARIN SODIUM 40 MG/0.4 ML SYRINGE SQ SCH (14:00)
== END 2016-08-11 11:01 | disposition home or self-care (01) | DRG 418 ==
LOC: PHED 13:57 → PHEDA 15:54 → N03B 20:28 → HCIS 08-08 21:05
PROVIDERS: ADMIT Internal Medicine; ATTEND Internal Medicine
PROC: 0FT44ZZ Resection of Gallbladder, Percutaneous Endoscopic Approach (ICD-10-PCS; principal; 2016-08-10 13:46)
DX: K81.0 Acute cholecystitis (principal); I16.1 Hypertensive emergency; I11.9 Hypertensive heart disease without heart failure; E83.39 Other disorders of phosphorus metabolism; R00.1 Bradycardia, unspecified; I16.0 Hypertensive urgency; E03.9 Hypothyroidism, unspecified; E78.5 Hyperlipidemia, unspecified; E87.6 Hypokalemia; G25.81 Restless legs syndrome; I25.10 Atherosclerotic heart disease of native coronary artery without angina pectoris; K21.9 Gastro-esophageal reflux disease without esophagitis; K59.00 Constipation, unspecified; Z72.0 Tobacco use; Z79.01 Long term (current) use of anticoagulants; Z95.5 Presence of coronary angioplasty implant and graft
CPT/HCPCS: 71020; 71275; 74174; 74176; 76705; 80048; 80053; 81001; 83036; 83605; 83690; 83735; 84100; 84484; 85025; 85610; 85730; 87641; 88304; 93005; 94150; 94620; 96365; 96366; 96375; 96376; J0131; J0295; J0690; J1650; J2060; J2270; J2405; J2710; J3010; J7050; J7120; Q9967